=== PATIENT | female | born 1990 | race American Indian/Alaskan Native ===

== ENCOUNTER 2017-03-08 22:54 | Emergency (ER) | payer MEDICAID, OTHER ==
--- NOTE | 2017-03-08 23:06 | EDM.PDOC ---
{null, ED HPI GENERAL MEDICAL PROBLEM - General Stated Complaint: BY AMBULANCE Time Seen by Provider: 03/08/17 23:05 Source of Information: Reports: Patient, EMS History Limitations: Reports: No Limitations - History of Present Illness INITIAL COMMENTS - FREE TEXT/NARRATIVE: EMS states Pt allege fell and injured ankle, Pt intox but ambulated to ambulance with friend. PATIENT NOT IN ROOM WHEN WENT TO EXAMINE. - Related Data Allergies Allergy/AdvReac Type Severity Reaction Status Date / Time hydromorphone HCl Allergy Mild Hives Verified 04/20/16 18:20 [From Dilaudid] vancomycin Allergy Mild Rash Verified 07/01/16 17:18 Home Meds: Home Meds Acetaminophen [Tylenol] 650 mg PO Q4H PRN #0 tablet 07/03/16 [Rx] Bacitracin/Neomycin/Polymyxin [Triple Antibiotic Oint] 1 gm TOP BID tube [Rx] Clindamycin Hcl [IJD: Clindamycin HCl] 300 mg PO .EVERY 6 HOURS #42 cap [Rx] Sertraline [Zoloft] 25 mg PO BEDTIME #30 tablet 07/03/16 [Rx] Past Medical History HEENT History: Reports: None Cardiovascular History: Reports: None Respiratory History: Reports: None Gastrointestinal History: Reports: None Genitourinary History: Reports: None 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 Musculoskeletal History: Reports: None Neurological History: Reports: None Psychiatric History: Reports: None Endocrine/Metabolic History: Reports: None Hematologic History: Reports: None Immunologic History: Reports: None Oncologic (Cancer) History: Reports: None Dermatologic History: Reports: None - Infectious Disease History Infectious Disease History: Reports: None - Past Surgical History Head Surgeries/Procedures: Reports: None Social & Family History - Family History Family Medical History: Noncontributory Respiratory: Reports: Asthma (mother) Endocrine/Metabolic: Reports: Diabetes, type II (grandmother) - Tobacco Use Smoking Status *Q: Never Smoker Second Hand Smoke Exposure: No - Alcohol Use Days Per Week of Alcohol Use: 0 - Recreational Drug Use Recreational Drug Use: No Drug Use in Last 12 Months: Yes Recreational Drug Type: Reports: Marijuana/Hashish Recreational Drug Use Frequency: Rarely Recreational Drug Last Use: 09-04-14 - Living Situation & Occupation Living situation: Reports: with Family Review of Systems - Review of Systems Review Of Systems: ROS reveals no pertinent complaints other than HPI. Trauma Exam - Physical Exam Exam: Not Obtained Text/Narrative:: pt not in room. Course - Orders/Labs/Meds Labs: Laboratory Tests 03/08/17 03/08/17 03/08/17 Range/Units 23:02 23:02 23:02 Urine Color Yellow (YELLOW) Urine Appearance Clear (CLEAR) Urine pH 5.5 (5.0-9.0) Ur Specific [place] <= 1.005 (1.005-1.030) Urine Protein 30 H (NEGATIVE) Urine Glucose (UA) Negative (NEGATIVE) Urine Ketones Negative (NEGATIVE) Urine Occult Blood Negative (NEGATIVE) Urine Nitrite Negative (NEGATIVE) Urine Bilirubin Negative (NEGATIVE) Urine Urobilinogen 0.2 (0.2-1.0) mg/dL Ur Leukocyte Esterase Trace H (NEGATIVE) Urine HCG, Qual Negative Urine Opiates Screen Negative (NEGATIVE) Ur Oxycodone Screen Negative (NEGATIVE) Urine Methadone Screen Negative (NEGATIVE) Ur Barbiturates Screen Negative (NEGATIVE) U Tricyclic Antidepress Negative (NEGATIVE) Ur Phencyclidine Scrn Negative (NEGATIVE) Ur Amphetamine Screen Negative (NEGATIVE) U Methamphetamines Scrn Negative (NEGATIVE) Urine MDMA Screen Negative (NEGATIVE) U Benzodiazepines Scrn Negative (NEGATIVE) Urine Cocaine Screen Negative (NEGATIVE) U Marijuana (THC) Screen Negative (NEGATIVE) Departure - Departure Time of Disposition: 00:46 Disposition: Eloped 07 Condition: fair Clinical Impression: Patient left without being seen Left ankle injury Qualifiers: Encounter type: initial encounter Qualified Code(s): S99.912A - Unspecified injury of left ankle, initial encounter - Discharge Information }
== END 2017-03-08 23:42 | disposition left against medical advice (07) ==
LOC: DL.ED 22:54
DX: Z53.21 Procedure and treatment not carried out due to patient leaving prior to being seen by health care provider (principal)
CPT/HCPCS: 80305; 81003; 81025

== ENCOUNTER 2018-06-07 08:42 | Day surgery (SDC) | payer MEDICAID, OTHER ==
[2018-06-07] MEDS ORDERED: Diphtheria,Pertussis(Acell),Tetanus Vaccine 0.5 ML SDV IM ONE (09:49)
[2018-06-07] MEDS ORDERED: ceFAZolin 1 GM Vial IVPUSH ONE ×2 (09:50→10:39)
[2018-06-07] MEDS ORDERED: Lactated Ringers 1,000 ML IV SCH (10:00)
[2018-06-07 10:02] LABS: CHLORIDE,CL 108 mmol/L (101-111); SODIUM,NA 141 mmol/L (135-145)
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
[2018-06-07] MEDS ORDERED: Propofol 200 MG/20 ML SDV IV ONE (12:01)
[2018-06-07] MEDS ORDERED: fentaNYL 100 MCG/2 ML SDV IV ONE (12:01)
[2018-06-07] MEDS ORDERED: Midazolam 1 MG/ML 2 ML SDV IV ONE (12:01)
[2018-06-07] MEDS ORDERED: Dexamethasone 4 MG/ML SDV IV ONE (12:01)
[2018-06-07] MEDS ORDERED: diphenhydrAMINE 50 MG/ML SDV IV ONE (12:01)
[2018-06-07] MEDS ORDERED: Lactated Ringers 1,000 ML IV ONE (12:01)
[2018-06-07] MEDS ORDERED: Ondansetron 4 MG/2 ML SDV IV ONE (12:01)
[2018-06-07] MEDS ORDERED: Glycopyrrolate 0.2 MG/ML 2 ML SDV IV ONE (12:01)
[2018-06-07] MEDS ORDERED: Lidocaine 1% 30 ML SDV ONE (12:07)
[2018-06-07] MEDS ORDERED: Lidocaine 1% 30 ML SDV INJECT ONE (13:15)
[2018-06-07 15:34] VITALS: BP 137/91
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
== END 2018-06-07 15:15 | disposition home or self-care (01) ==
LOC: DL.SDS 08:42
PROVIDERS: ATTEND Surgery
DX: S51.812A Laceration without foreign body of left forearm, initial encounter (principal); Z79.2 Long term (current) use of antibiotics; Z88.8 Allergy status to other drugs, medicaments and biological substances; X58.XXXA Exposure to other specified factors, initial encounter
CPT/HCPCS: 13121; 13122; 36415; 80053; 84703; 85025; 90471; 90715; 96374; 99283; G0480; J0690; J1100; J1200; J2250; J2405; J2704; J3010; J3490; J7120

== ENCOUNTER 2019-09-01 10:02 | Emergency (ER) | payer MEDICAID, OTHER ==
[2019-09-01 10:22] VITALS: BP 154/91; PULSE 93
--- NOTE | 2019-09-01 10:38 | EDM.PDOC ---
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 Pt reports Hx of irregular menses. She is unsure of her LMP but she believes it was some time last May 2019. Pt reports Hx of being G1, P0 with sAb1. Pt reports that last Sunday she got her period, which was fairly normal at first. However, today it became heavy and she began to have intermittent "waves" of pain and cramping in the pelvis. She admits to having unprotected sex. At 0400HRS this morning she states she passed something in the toilet, either a large clot or tissue. She took Ibupofen 200 mg at 0800HRS this morning for the pain and cramping. Currently she rates the pelvic pain 5/10. Pt states she is soaking a pads every 20 minutes for the last 2 hours, but now that she is in the ER the bleeding has lessened. Onset: Gradual Onset Date: 08/25/19 Duration: Constant, Getting Worse Location: Reports: Pelvis Quality: Reports: Ache, Other (Cramping) Severity: Moderate Improves with: Reports: None Worsens with: Reports: None Associated Symptoms: Reports: No Other Symptoms Treatments DIGITIZER: Reports: NSAIDS Lower Abdominal Pain Score (Numeric/FACES): 4 - Related Data Allergies Allergy/AdvReac Type Severity Reaction Status Date / Time hydromorphone HCl Allergy Mild Hives Verified 09/01/19 10:23 [From Dilaudid] vancomycin Allergy Mild Rash Verified 09/01/19 10:23 transpore tape Allergy Facial Uncoded 09/01/19 10:23 Swelling Home Meds: Home Meds Ibuprofen 200 mg PO ASDIRECTED PRN 09/01/19 [History] Past Medical History HEENT History: Reports: None Cardiovascular History: Reports: None Respiratory History: Reports: None Gastrointestinal History: Reports: None Genitourinary History: Reports: None 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 Para: 0 LMP (Approximate): Menstruating Musculoskeletal History: Reports: None Neurological History: Reports: None Psychiatric History: Reports: Addiction Endocrine/Metabolic History: Reports: None Hematologic History: Reports: None Immunologic History: Reports: None Oncologic (Cancer) History: Reports: None Dermatologic History: Reports: None - Infectious Disease History Infectious Disease History: Reports: None - Past Surgical History Head Surgeries/Procedures: Reports: None Social & Family History - Family History Family Medical History: Noncontributory Respiratory: Reports: Asthma Endocrine/Metabolic: Reports: Diabetes, type II - Tobacco Use Smoking Status *Q: Never Smoker Second Hand Smoke Exposure: No - Caffeine Use Caffeine Use: Reports: Energy Drinks, Soda - Recreational Drug Use Recreational Drug Use: Yes Drug Use in Last 12 Months: No Recreational Drug Type: Reports: Marijuana/Hashish, Methamphetamine, Oxycodone Recreational Drug Use Frequency: Not Used In Over 3 Months - Living Situation & Occupation Living situation: Reports: with Family ED ROS GENERAL - Review of Systems Review Of Systems: ROS reveals no pertinent complaints other than HPI. ED EXAM, RENAL/ - Physical Exam Exam: See Below Exam Limited By: No Limitations General Appearance: Alert, WD/WN, No Apparent Distress, Obese Head: Atraumatic, Normocephalic Neck: Normal Inspection Respiratory/Chest: No Respiratory Distress, Lungs Clear, Normal Breath Sounds, No Accessory Muscle Use, Chest Non-Tender Cardiovascular: Regular Rate, Rhythm, No Edema GI/Abdominal: Normal Bowel Sounds, Soft, No Distention, Tender (Mild suprapuic tenderness). No: Guarding, Rigid, Rebound (Female) Exam: Deferred Rectal (Female) Exam: Deferred Back Exam: Normal Inspection Extremities: Normal Inspection Neurological: Alert, Oriented, Normal Cognition, Normal Gait, No Motor/Sensory Deficits Psychiatric: Tearful Skin Exam: Warm, Dry, Intact, Normal Color, No Rash Course - Vital Signs Last Recorded V/S: Last Vital Signs Temp 96.6 F 09/01/19 10:16 Pulse 93 09/01/19 10:16 Resp 16 09/01/19 10:16 BP 154/91 H 09/01/19 10:16 Pulse Ox 100 09/01/19 10:16 - Orders/Labs/Meds Orders: Active Orders 24 hr Category Date Time Status OB Ltd 1 or More Fetus [US] Stat Exams 09/01/19 11:09 Ordered OB Transvaginal [US] Stat Exams 09/01/19 11:01 Ordered CHLAMYDIA AND GONORRHEA BY TMA Routine Lab 09/01/19 10:34 Received CULTURE URINE [RM] Stat Lab 09/01/19 10:34 Received Labs: Laboratory Tests 09/01/19 09/01/19 09/01/19 Range/Units 10:34 10:34 10:43 WBC 10.1 H (5.0-10.0) 10^3/uL RBC 4.52 (4.2-5.4) 10^6/uL Hgb 13.5 (12.0-16.0) g/dL Hct 40.4 (37.0-47.0) % MCV 89.4 (80-100) fL MCH 29.9 (27.0-34.0) pg MCHC 33.4 (33.0-35.0) g/dL Plt Count 272 D (150-450) 10^3/uL Neut % (Auto) 80.4 H (42.2-75.2) % Lymph % (Auto) 13.8 L (20.5-50.1) % [place] % (Auto) 4.1 (2-8) % Eos % (Auto) 1.4 (1.0-3.0) % Baso % (Auto) 0.3 (0.0-1.0) % Sodium (135-145) mmol/L Potassium (3.6-5.0) mmol/L Chloride (101-111) mmol/L Carbon Dioxide (21.0-31.0) mmol/L Anion Gap BUN (7-18) mg/dL Creatinine (0.6-1.3) mg/dL Est Cr Clr Drug Dosing mL/min Estimated GFR (MDRD) BUN/Creatinine Ratio Glucose (74-105) mg/dL Calcium (8.4-10.2) mg/dl Total Bilirubin (0.2-1.0) mg/dL AST (10-42) IU/L ALT (10-60) IU/L Alkaline Phosphatase (42-121) IU/L Total Protein (6.7-8.2) g/dl Albumin (3.2-5.5) g/dl Globulin Albumin/Globulin Ratio HCG, Quant (0-25) mIU/ml Beta HCG, Quant mIU/ml Urine Color Red (YELLOW) Urine Appearance Cloudy (CLEAR) Urine pH 7.5 (5.0-9.0) Ur Specific [place] 1.020 (1.005-1.030) Urine Protein 100 H (NEGATIVE) Urine Glucose (UA) Negative (NEGATIVE) Urine Ketones Negative (NEGATIVE) Urine Occult Blood Large H (NEGATIVE) Urine Nitrite Negative (NEGATIVE) Urine Bilirubin Negative (NEGATIVE) Urine Urobilinogen 0.2 (0.2-1.0) mg/dL Ur Leukocyte Esterase Small H (NEGATIVE) Urine RBC Packed H /HPF Urine WBC 0-5 (0-5/HPF) /HPF Ur Epithelial Cells Few (NOT SEEN) /HPF Urine Bacteria Not seen (0-FEW/HPF) /HPF Urine Mucus Rare (NOT SEEN) /LPF Urine HCG, Qual Positive Blood Type 09/01/19 09/01/19 09/01/19 Range/Units 10:43 10:43 10:43 WBC (5.0-10.0) 10^3/uL RBC (4.2-5.4) 10^6/uL Hgb (12.0-16.0) g/dL Hct (37.0-47.0) % MCV (80-100) fL MCH (27.0-34.0) pg MCHC (33.0-35.0) g/dL Plt Count (150-450) 10^3/uL Neut % (Auto) (42.2-75.2) % Lymph % (Auto) (20.5-50.1) % [place] % (Auto) (2-8) % Eos % (Auto) (1.0-3.0) % Baso % (Auto) (0.0-1.0) % Sodium 137 (135-145) mmol/L Potassium 3.9 (3.6-5.0) mmol/L Chloride 103 (101-111) mmol/L Carbon Dioxide 23.0 (21.0-31.0) mmol/L Anion Gap 14.9 BUN 7 (7-18) mg/dL Creatinine 0.7 (0.6-1.3) mg/dL Est Cr Clr Drug Dosing 108.63 mL/min Estimated GFR (MDRD) > 60 BUN/Creatinine Ratio 10.00 Glucose 94 (74-105) mg/dL Calcium 8.8 (8.4-10.2) mg/dl Total Bilirubin 0.7 (0.2-1.0) mg/dL AST 25 (10-42) IU/L ALT 20 (10-60) IU/L Alkaline Phosphatase 79 (42-121) IU/L Total Protein 7.4 (6.7-8.2) g/dl Albumin 3.8 (3.2-5.5) g/dl Globulin 3.6 Albumin/Globulin Ratio 1.06 HCG, Quant > 1359 H (0-25) mIU/ml Beta HCG, Quant 8835 mIU/ml Urine Color (YELLOW) Urine Appearance (CLEAR) Urine pH (5.0-9.0) Ur Specific [place] (1.005-1.030) Urine Protein (NEGATIVE) Urine Glucose (UA) (NEGATIVE) Urine Ketones (NEGATIVE) Urine Occult Blood (NEGATIVE) Urine Nitrite (NEGATIVE) Urine Bilirubin (NEGATIVE) Urine Urobilinogen (0.2-1.0) mg/dL Ur Leukocyte Esterase (NEGATIVE) Urine RBC /HPF Urine WBC (0-5/HPF) /HPF Ur Epithelial Cells (NOT SEEN) /HPF Urine Bacteria (0-FEW/HPF) /HPF Urine Mucus (NOT SEEN) /LPF Urine HCG, Qual Blood Type O POSITIVE - Radiology Interpretation Free Text/Narrative:: OB US: empty uterus, no acute findings per Tech report, see Radiologist complete report. Departure - Departure Time of Disposition: 11:56 Disposition: Home, Self-Care 01 Condition: Good Clinical Impression: Complete - Discharge Information *PRESCRIPTION DRUG MONITORING PROGRAM REVIEWED*: No *COPY OF PRESCRIPTION DRUG MONITORING REPORT IN PATIENT RADHA: No Instructions: Miscarriage, [id number] Forms: ED Department Discharge Additional Instructions: Follow up in clinic this week or next week for recheck. Return to the ER if you develop a fever, lightheadedness or fainting, or have heavy vaginal bleeding (completely soaking one or more large pads per hour for 2 or more hours). - My Orders Last 24 Hours: My Active Orders 09/01/19 10:34 CHLAMYDIA AND GONORRHEA BY TMA Routine CULTURE URINE [] Stat 09/01/19 11:01 OB Transvaginal [US] Stat 09/01/19 11:09 OB Ltd 1 or More Fetus [US] Stat - Assessment/Plan Last 24 Hours: My Active Orders 09/01/19 10:34 CHLAMYDIA AND GONORRHEA BY TMA Routine CULTURE URINE [RM] Stat 09/01/19 11:01 OB Transvaginal [US] Stat 09/01/19 11:09 OB Ltd 1 or More Fetus [US] Stat
[2019-09-01 11:08] LABS: ANION GAP 14.9; CHLORIDE,CL 103 mmol/L (101-111); SODIUM,NA 137 mmol/L (135-145)
--- NOTE | 2019-09-01 12:20 | US ---
EXAMINATION: OB Transvaginal SEX: Female AGE: 29 years CLINICAL HISTORY: 29-year-old female emergency department with pelvic pain/vag bleed, irreg menses, LMP 22 May. INTERPRETATION: 1. Midline uterus normal size and anatomic configuration with 9.9 mm central endometrial "stripe". 2. No sign of endometrial polypoid, fluid in the endometrial canal, or gestational sac i.e. no IUP. 3. Uterus measures 10.7 cm L x 6.8 cm W by a 5.0 cm AP diameter. No myometrial fibroid mass lesion. Tiny nabothian cyst. 4. Symmetric normal-appearing ovaries. Right ovary measures 3.0 x 2.8 x 2.0 cm. Left ovary measures 2.9 x 2.0 x 1.8 cm. 5. No extraovarian adnexal mass lesion. 6. No free fluid in the cul-de-sac. CONCLUSION: Negative pelvic sonogram. No current sonogram evidence of IUP.
== END 2019-09-01 12:02 | disposition home or self-care (01) ==
LOC: DL.ED 10:02
DX: O03.9 Complete or unspecified spontaneous abortion without complication (principal); Z88.5 Allergy status to narcotic agent; Z88.1 Allergy status to other antibiotic agents; Z91.048 Other nonmedicinal substance allergy status
CPT/HCPCS: 36415; 76815; 76817; 80053; 81001; 81025; 84702; 85025; 86900; 86901; 87086; 87088; 87186; 87491; 87591; 99284; 99284-25

== ENCOUNTER 2023-04-24 13:11 | Emergency (ER) | payer OTHER ==
[2023-04-24 13:26] VITALS: BP 144/95; PULSE 98
[2023-04-24] MEDS ORDERED: Ondansetron 4 MG/2 ML SDV IV ONE (13:26)
[2023-04-24] MEDS ORDERED: Sodium Chloride 0.9% 1,000 ML IV ONE (13:26)
[2023-04-24] MEDS ORDERED: Ketorolac 30 MG/ML SDV IVPUSH ONE (13:27)
[2023-04-24] MEDS ORDERED: Sodium Chloride 0.9% 10 ML Syringe FLUSH PRN (13:27)
[2023-04-24 13:41] LABS: BASOPHILS PERCENT AUTO 0.5 % (0.0-1.0); EOSINOPHILS PERCENT AUTO 3.3 % (1.0-3.0); HEMATOCRIT 41.7 % (37.0-47.0); HEMOGLOBIN 13.5 g/dL (12.0-16.0); LYMPHOCYTES PERCENT AUTO 31.3 % (20.5-50.1); MEAN CORPUSCULAR HEMOGLOBIN 29.5 pg (27.0-34.0); MEAN CORPUSCULAR HGB CONC 32.4 g/dL (33.0-35.0); MONOCYTES PERCENT AUTO 6.3 % (2-8); NEUTROPHILS PERCENT AUTO 58.6 % (42.2-75.2); PLATELET COUNT,PLT 137 10^3/uL (150-450); RED BLOOD CELL COUNT 4.58 10^6/uL (4.2-5.4)
[2023-04-24 14:00] LABS: ALANINE AMINOTRANSFERASE,ALT 59 U/L (14-59); ALKALINE PHOSPHATASE 255 U/L (46-116); ANION GAP 11.8 mEq/L (7-13); ASPARTATE AMNIOTRANSFERASE,AST 172 U/L (15-37); BILIRUBIN TOTAL 1.3 mg/dL (0.2-1.0); BLOOD UREA NITROGEN,BUN 5 mg/dL (7-18); BUN/CREATININE RATIO 6.6 (No establ ref range); CALCIUM 8.3 mg/dL (8.5-10.1); CARBON DIOXIDE,CO2 26 mmol/L (21-32); CHLORIDE,CL 100 mmol/L (98-107); CREATININE 0.76 mg/dL (0.55-1.02); GLUCOSE RANDOM 110 mg/dL (70-99); POTASSIUM,K 3.8 mmol/L (3.5-5.1); PROTEIN TOTAL,TP 8.2 g/dL (6.4-8.2); SODIUM,NA 134 mmol/L (136-145)
[2023-04-24 14:03] LABS: LACTIC ACID 1.1 mmol/L (0.4-2.0)
[2023-04-24 14:04] LABS: A/G RATIO 0.58; ESTIMATED GFR 107 mL/min (>=60)
[2023-04-24 14:15] LABS: AMPHETAMINES,URINE NEGATIVE (NEGATIVE); BARBITURATES,URINE NEGATIVE (NEGATIVE); BENZODIAZEPINE,URINE NEGATIVE (NEGATIVE); MDMA (ECSTASY), URINE NEGATIVE (NEGATIVE); METHADONE,URINE NEGATIVE (NEGATIVE); METHAMPHETAMINES,URINE POSITIVE (NEGATIVE); OPIATES,URINE NEGATIVE (NEGATIVE); OXYCODONE,URINE NEGATIVE (NEGATIVE); PHENCYCLIDINE,URINE NEGATIVE (NEGATIVE); TCA,URINE NEGATIVE (NEGATIVE)
[2023-04-24 14:20] LABS: APPEARANCE,URINE CLEAR (CLEAR); BILIRUBIN,URINE NEGATIVE (NEGATIVE); COLOR,URINE YELLOW (YELLOW); GLUCOSE,URINE NEGATIVE (NEGATIVE); KETONES,URINE NEGATIVE (NEGATIVE); LEUKOCYTE ESTERASE,URINE NEGATIVE (NEGATIVE); NITRITE,URINE NEGATIVE (NEGATIVE); PH,URINE 7.5 (5.0-9.0)
[2023-04-24 14:21] LABS: OCCULT BLOOD,URINE TRACE-INTACT (NEGATIVE); PROTEIN,URINE NEGATIVE (NEGATIVE)
[2023-04-24 14:26] LABS: BACTERIA,URINE FEW /HPF (0-FEW/HPF); EPITHELIAL CELLS,URINE MODERATE /HPF (NOT SEEN); MUCUS,URINE FEW /LPF (NOT SEEN); RBC,URINE 0-5 /HPF (0-5); WBC,URINE 0-5 /HPF (0-5/HPF)
[2023-04-24] MEDS ORDERED: Take Home: Cyclobenzaprine 10 MG Tab, 4 Tab Pack PO ONE (15:12)
== END 2023-04-24 15:33 | disposition home or self-care (01) ==
LOC: DL.ED 13:11
DX: K70.30 Alcoholic cirrhosis of liver without ascites (principal); M54.50 Low back pain, unspecified; Z88.5 Allergy status to narcotic agent; Z88.1 Allergy status to other antibiotic agents; Z91.09 Other allergy status, other than to drugs and biological substances
CPT/HCPCS: 36415; 74176; 80053; 80305-QW; 81001; 81025; 83605; 84145; 85025; 96361; 96374; 96375; 99284; 99284-25; A9270-GY; J1885; J2405; J3490; J7030

== ENCOUNTER 2023-08-24 07:18 | Emergency (ER) | payer MEDICAID, OTHER ==
[2023-08-24] MEDS ORDERED: Albuterol/Ipratropium 3.0-0.5 MG/3 ML Neb Soln NEB ONE (08:02)
[2023-08-24 08:05] VITALS: BP 152/104; PULSE 97
[2023-08-24 08:27] LABS: CORONAVIRUS COVID-19 NAA NEGATIVE (NEGATIVE); INFLUENZA A NAA NEGATIVE (NEGATIVE); INFLUENZA B NAA NEGATIVE (NEGATIVE); RESPIRATORY SYNCYTIAL VIR NAA NEGATIVE (NEGATIVE)
== END 2023-08-24 09:06 | disposition home or self-care (01) ==
LOC: DL.ED 07:18
DX: S82.435A Nondisplaced oblique fracture of shaft of left fibula, initial encounter for closed fracture (principal); J06.9 Acute upper respiratory infection, unspecified; J20.9 Acute bronchitis, unspecified; Z20.822 Contact with and (suspected) exposure to COVID-19; Z88.1 Allergy status to other antibiotic agents; Z88.8 Allergy status to other drugs, medicaments and biological substances; Z91.048 Other nonmedicinal substance allergy status; X50.1XXA Overexertion from prolonged static or awkward postures, initial encounter
CPT/HCPCS: 0241U; 29515; 71045; 73610-LT; 87081; 87430; 99284; J7620-GY

== ENCOUNTER 2023-09-04 13:30 | Emergency (ER) | payer MEDICAID ==
[2023-09-04] MEDS ORDERED: Ibuprofen 800 MG Tab PO ONE (14:27)
[2023-09-04 14:41] LABS: CORONAVIRUS COVID-19 NAA NEGATIVE (NEGATIVE); INFLUENZA A NAA NEGATIVE (NEGATIVE); INFLUENZA B NAA NEGATIVE (NEGATIVE); RESPIRATORY SYNCYTIAL VIR NAA NEGATIVE (NEGATIVE)
== END 2023-09-04 15:18 | disposition home or self-care (01) ==
LOC: DL.ED 13:30
DX: J06.9 Acute upper respiratory infection, unspecified (principal); H66.91 Otitis media, unspecified, right ear; R19.7 Diarrhea, unspecified; Z88.5 Allergy status to narcotic agent; Z88.1 Allergy status to other antibiotic agents; Z91.048 Other nonmedicinal substance allergy status; Z20.822 Contact with and (suspected) exposure to COVID-19
CPT/HCPCS: 0241U; 87081; 87430; 99283; 99284; A9270-GY

== ENCOUNTER 2023-09-23 00:03 | Emergency (ER) | payer MEDICAID ==
[2023-09-23] MEDS ORDERED: Dexamethasone 4 MG/ML SDV IVPUSH ONE (00:16)
[2023-09-23 00:40] LABS: BASOPHILS PERCENT AUTO 0.5 % (0.0-1.0); EOSINOPHILS PERCENT AUTO 1.8 % (1.0-3.0); HEMATOCRIT 35.3 % (37.0-47.0); HEMOGLOBIN 11.9 g/dL (12.0-16.0); LYMPHOCYTES PERCENT AUTO 38.8 % (20.5-50.1); MEAN CORPUSCULAR HEMOGLOBIN 30.8 pg (27.0-34.0); MEAN CORPUSCULAR HGB CONC 33.7 g/dL (33.0-35.0); MEAN CORPUSCULAR VOLUME 91.5 fL (80-100); MONOCYTES PERCENT AUTO 6.1 % (2-8); NEUTROPHILS PERCENT AUTO 52.8 % (42.2-75.2); PLATELET COUNT,PLT 145 10^3/uL (150-450); RED BLOOD CELL COUNT 3.86 10^6/uL (4.2-5.4); WHITE BLOOD CELL COUNT,WBC 8.8 10^3/uL (5.0-10.0)
[2023-09-23 00:53] LABS: ANION GAP 11.3 mEq/L (7-13); BLOOD UREA NITROGEN,BUN 4 mg/dL (7-18); CALCIUM 7.8 mg/dL (8.5-10.1); CARBON DIOXIDE,CO2 28 mmol/L (21-32); CHLORIDE,CL 104 mmol/L (98-107); CREATININE 0.77 mg/dL (0.55-1.02); GLUCOSE RANDOM 128 mg/dL (70-99); POTASSIUM,K 3.3 mmol/L (3.5-5.1); SODIUM,NA 140 mmol/L (136-145)
[2023-09-23 00:54] LABS: ESTIMATED GFR 106 mL/min (>=60)
[2023-09-23 01:16] LABS: CORONAVIRUS COVID-19 NAA NEGATIVE (NEGATIVE); INFLUENZA A NAA NEGATIVE (NEGATIVE); INFLUENZA B NAA NEGATIVE (NEGATIVE); RESPIRATORY SYNCYTIAL VIR NAA NEGATIVE (NEGATIVE)
[2023-09-23] MEDS ORDERED: Iopamidol 612 MG/ML 100 ML Bottle IVPUSH ONE (01:19)
[2023-09-23] MEDS ORDERED: Potassium Chloride 10 MEQ Tab.ER PO ONE (01:28)
[2023-09-23] MEDS ORDERED: Iopamidol 755 Mg/ML 100 ML Bottle IVPUSH ONE (01:57)
[2023-09-23 02:54] VITALS: BP 132/84; PULSE 109
[2023-09-23] MEDS ORDERED: Take Home: Doxycycline 100 MG Cap, 4 Cap Pack PO ONE ×2 (03:02→03:05)
[2023-09-23] MEDS ORDERED: Take Home: predniSONE 20 MG, 4 Tab Pack PO ONE (03:03)
== END 2023-09-23 03:23 | disposition home or self-care (01) ==
LOC: DL.ED 00:03
DX: J01.20 Acute ethmoidal sinusitis, unspecified (principal); Z20.822 Contact with and (suspected) exposure to COVID-19; Z88.1 Allergy status to other antibiotic agents; Z88.5 Allergy status to narcotic agent; Z91.048 Other nonmedicinal substance allergy status
CPT/HCPCS: 0241U; 36415; 70491; 71046; 71275; 80048; 85025; 85379; 87081; 87430; 96374; 99283; 99284-25; A9270-GY; J1100; Q9967

== ENCOUNTER 2023-10-01 10:56 | Inpatient (IN) | payer MEDICAID ==
[2023-10-01] MEDS ORDERED: Sodium Chloride 0.9% 10 ML Syringe FLUSH PRN (11:20)
[2023-10-01] MEDS ORDERED: Ondansetron 4 MG/2 ML SDV IV ONE (11:21)
[2023-10-01] MEDS ORDERED: Sodium Chloride 0.9% 1,000 ML IV ONE (11:21)
[2023-10-01] MEDS ORDERED: Thiamine 100 MG in Sodium Chloride 0.9% 100 ML IV ONE (11:21)
[2023-10-01 11:42] LABS: HEMATOCRIT 34.1 % (37.0-47.0); HEMOGLOBIN 11.1 g/dL (12.0-16.0); MEAN CORPUSCULAR HEMOGLOBIN 30.7 pg (27.0-34.0); MEAN CORPUSCULAR HGB CONC 32.6 g/dL (33.0-35.0); MEAN CORPUSCULAR VOLUME 94.5 fL (80-100); PLATELET COUNT,PLT 90 10^3/uL (150-450); RED BLOOD CELL COUNT 3.61 10^6/uL (4.2-5.4); WHITE BLOOD CELL COUNT,WBC 5.4 10^3/uL (5.0-10.0)
[2023-10-01 11:51] LABS: BASOPHILS PERCENT AUTO 1.5 % (0.0-1.0); EOSINOPHILS PERCENT AUTO 1.5 % (1.0-3.0); LYMPHOCYTES PERCENT AUTO 21.5 % (20.5-50.1); MONOCYTES PERCENT AUTO 8.3 % (2-8); NEUTROPHILS PERCENT AUTO 67.2 % (42.2-75.2)
[2023-10-01 11:59] LABS: INR 1.3 (0.9-1.2); PROTHROMBIN TIME 12.9 SEC (9.0-12.0); PTT,PARTIAL THROMBOPLSTIN TIME 30.7 SEC (22.0-34.0)
[2023-10-01 12:00] LABS: ALANINE AMINOTRANSFERASE,ALT 52 U/L (14-59); ALBUMIN 2.4 g/dL (3.4-5.0); ALKALINE PHOSPHATASE 277 U/L (46-116); AMYLASE 32 U/L (25-115); ANION GAP 9.5 mEq/L (7-13); ASPARTATE AMNIOTRANSFERASE,AST 176 U/L (15-37); BILIRUBIN TOTAL 2.3 mg/dL (0.2-1.0); BLOOD UREA NITROGEN,BUN 8 mg/dL (7-18); BUN/CREATININE RATIO 11.4 (No establ ref range); CALCIUM 7.4 mg/dL (8.5-10.1); CARBON DIOXIDE,CO2 29 mmol/L (21-32); CHLORIDE,CL 105 mmol/L (98-107); EST CRCL DRUG DOSING (CG) 104.78 mL/min; GLUCOSE RANDOM 108 mg/dL (70-99); LIPASE 54 U/L (16-77); MAGNESIUM 1.5 mg/dL (1.8-2.4); POTASSIUM,K 3.5 mmol/L (3.5-5.1); PROTEIN TOTAL,TP 7.6 g/dL (6.4-8.2); SODIUM,NA 140 mmol/L (136-145)
[2023-10-01 12:01] LABS: A/G RATIO 0.46; ESTIMATED GFR 119 mL/min (>=60)
[2023-10-01 12:03] LABS: LACTIC ACID 1.4 mmol/L (0.4-2.0)
[2023-10-01] MEDS ORDERED: Magnesium Sulfate/Water 2 GM in Premix Bag 1 BAG IV ONE ×2 (12:04→15:11)
[2023-10-01 12:14] LABS: EOSINOPHILS PERCENT MAN 1 % (1-3); LYMPHOCYTES PERCENT MAN 23 % (20-50); MONOCYTES PERCENT MAN 4 % (2-8); SEG NEUTROPHILS PERCENT MAN 71 % (42-75)
[2023-10-01] MEDS ORDERED: Iopamidol 612 MG/ML 100 ML Bottle IVPUSH ONE (12:19)
[2023-10-01] MEDS ORDERED: Magnesium Sulfate/Water 50 ML ONE (12:45)
[2023-10-01] MEDS ORDERED: LORazepam 2 MG/ML SDV IVPUSH ONE (13:50)
[2023-10-01] MEDS ORDERED: Haloperidol Lactate 5 MG/ML SDV IM PRN (14:41)
[2023-10-01] MEDS ORDERED: LORazepam 0.5 MG Tab PO PRN (14:41)
[2023-10-01] MEDS ORDERED: LORazepam 2 MG/ML SDV IV PRN (14:41)
[2023-10-01] MEDS ORDERED: Ondansetron 4 MG/2 ML SDV IVPUSH PRN ×2 (14:41→14:49)
[2023-10-01] MEDS ORDERED: cloNIDine 0.1 MG Tab PO PRN (14:41)
[2023-10-01] MEDS ORDERED: MVI, Adult with Vitamin K 10 ML, Folic Acid 1 MG, Thiamine 100 MG in Lactated Ringers 1... IV ONE ×4 (14:41)
[2023-10-01] MEDS ORDERED: Polyethylene Glycol 3350 Powder 17 GM Packet PO PRN (14:49)
[2023-10-01] MEDS ORDERED: Albuterol/Ipratropium 3.0-0.5 MG/3 ML Neb Soln NEB PRN (14:49)
[2023-10-01] MEDS ORDERED: Magnesium Hydroxide 400 MG/5 ML Susp 30 ML Cup PO PRN (14:49)
[2023-10-01] MEDS ORDERED: Sennosides/Docusate Sodium 50-8.6 MG Tab PO PRN (14:49)
[2023-10-01] MEDS ORDERED: traMADol 50 MG Tab PO PRN (14:59)
[2023-10-01] MEDS ORDERED: oxyCODONE 5 MG Tab PO PRN (15:00)
[2023-10-01] MEDS ORDERED: Naloxone 2 MG/2 ML Syringe IVPUSH PRN (15:01)
[2023-10-01] MEDS ORDERED: fentaNYL 100 MCG/2 ML SDV IVPUSH PRN (15:01)
[2023-10-01] MEDS ORDERED: Pantoprazole 40 MG Vial IVPUSH ONE (15:04)
[2023-10-01] MEDS ORDERED: hydrALAZINE 20 MG/ML SDV IVPUSH PRN (15:06)
[2023-10-01] MEDS ORDERED: Metoprolol Tartrate 5 MG/5 ML SDV IVPUSH PRN (15:06)
[2023-10-01] MEDS ORDERED: LORazepam 2 MG/ML SDV IVPUSH PRN (15:07)
[2023-10-01] MEDS ORDERED: Propranolol 20 MG Tab PO ONE (15:13)
[2023-10-01] MEDS ORDERED: Nicotine 21 MG/24 Hr Patch TRDERM PRN (15:18)
[2023-10-01] MEDS: Sucralfate Suspension 1 GM/10 ML Cup PO SCH ×2 (16:37→21:49)
[2023-10-01 16:59] LABS: HEMOGLOBIN A1C 5.4 % (<5.7)
[2023-10-01 17:07] LABS: T4 FREE 1.23 ng/dL (0.76-1.46); TSH ULTRASENSITIVE 1.72 uIU/mL (0.36-3.74)
[2023-10-01 17:08] LABS: PERCENT FE SATURATION 22.7 % (20.0-50.0)
[2023-10-01] MEDS: Pantoprazole 40 MG Vial IVPUSH SCH (17:12)
[2023-10-01 18:17] LABS: HEMATOCRIT 33.5 % (37.0-47.0); HEMOGLOBIN 10.7 g/dL (12.0-16.0)
[2023-10-01] MEDS ORDERED: [UNRECOGNIZED DRUG - OTHER] TRDERM SCH (21:00)
[2023-10-01] MEDS: Propranolol 20 MG Tab PO SCH (21:49)
[2023-10-02 00:19] LABS: HEMATOCRIT 35.2 % (37.0-47.0); HEMOGLOBIN 11.3 g/dL (12.0-16.0)
[2023-10-02 00:24] LABS: AMPHETAMINES,URINE NEGATIVE (NEGATIVE); APPEARANCE,URINE CLEAR (CLEAR); BARBITURATES,URINE NEGATIVE (NEGATIVE); BENZODIAZEPINE,URINE POSITIVE (NEGATIVE); BILIRUBIN,URINE NEGATIVE (NEGATIVE); COLOR,URINE DARK YELLOW (YELLOW); GLUCOSE,URINE NEGATIVE (NEGATIVE); KETONES,URINE NEGATIVE (NEGATIVE); LEUKOCYTE ESTERASE,URINE NEGATIVE (NEGATIVE); MDMA (ECSTASY), URINE NEGATIVE (NEGATIVE); METHADONE,URINE NEGATIVE (NEGATIVE); METHAMPHETAMINES,URINE NEGATIVE (NEGATIVE); NITRITE,URINE NEGATIVE (NEGATIVE); OCCULT BLOOD,URINE MODERATE (NEGATIVE); OPIATES,URINE NEGATIVE (NEGATIVE); OXYCODONE,URINE NEGATIVE (NEGATIVE); PHENCYCLIDINE,URINE NEGATIVE (NEGATIVE); PROTEIN,URINE NEGATIVE (NEGATIVE); TCA,URINE NEGATIVE (NEGATIVE); UROBILINOGEN,URINE 0.2 mg/dL (0.2-1.0)
[2023-10-02 00:32] LABS: EPITHELIAL CELLS,URINE FEW /HPF (NOT SEEN); RBC,URINE 40-50 /HPF (0-5); WBC,URINE 0-5 /HPF (0-5/HPF)
[2023-10-02 00:33] LABS: BACTERIA,URINE RARE /HPF (0-FEW/HPF)
[2023-10-02] MEDS ORDERED: Pantoprazole 40 MG Tab.CR PO SCH (06:00)
[2023-10-02] MEDS: Sucralfate Suspension 1 GM/10 ML Cup PO SCH ×4 (06:03→20:00)
[2023-10-02] MEDS: Pantoprazole 40 MG Vial IVPUSH SCH ×2 (06:03→17:09)
[2023-10-02 06:06] LABS: EOSINOPHILS PERCENT AUTO 2.7 % (1.0-3.0); HEMATOCRIT 35.2 % (37.0-47.0); HEMOGLOBIN 11.4 g/dL (12.0-16.0); LYMPHOCYTES PERCENT AUTO 31.2 % (20.5-50.1); MEAN CORPUSCULAR HEMOGLOBIN 30.6 pg (27.0-34.0); MEAN CORPUSCULAR HGB CONC 32.4 g/dL (33.0-35.0); MEAN CORPUSCULAR VOLUME 94.6 fL (80-100); MONOCYTES PERCENT AUTO 9.2 % (2-8); NEUTROPHILS PERCENT AUTO 55.9 % (42.2-75.2); PLATELET COUNT,PLT 80 10^3/uL (150-450); RED BLOOD CELL COUNT 3.72 10^6/uL (4.2-5.4); WHITE BLOOD CELL COUNT,WBC 4.9 10^3/uL (5.0-10.0)
[2023-10-02 06:15] LABS: INR 1.3 (0.9-1.2); PROTHROMBIN TIME 12.8 SEC (9.0-12.0)
[2023-10-02 06:21] LABS: ALBUMIN 2.1 g/dL (3.4-5.0); ANION GAP 8.8 mEq/L (7-13); BUN/CREATININE RATIO 11.8 (No establ ref range); CALCIUM 7.5 mg/dL (8.5-10.1); CREATININE 0.68 mg/dL (0.55-1.02); EST CRCL DRUG DOSING (CG) 107.86 mL/min; MAGNESIUM 2.1 mg/dL (1.8-2.4); POTASSIUM,K 3.8 mmol/L (3.5-5.1); PROTEIN TOTAL,TP 7.4 g/dL (6.4-8.2)
[2023-10-02 06:27] LABS: A/G RATIO 0.4
[2023-10-02] MEDS: Propranolol 20 MG Tab PO SCH ×2 (09:16→20:00)
[2023-10-02] MEDS: Folic Acid 1 MG Tab PO SCH (09:16)
[2023-10-02] MEDS: Multivitamin Tab PO SCH (09:16)
[2023-10-02] MEDS: Phytonadione 5 MG Tab PO SCH (09:16)
[2023-10-02] MEDS ORDERED: Spironolactone 25 MG Tab PO ONE (18:11)
[2023-10-02] MEDS ORDERED: Furosemide 40 MG Tab PO ONE (18:13)
[2023-10-03] MEDS: Sucralfate Suspension 1 GM/10 ML Cup PO SCH ×3 (05:41→10:20)
[2023-10-03] MEDS: Pantoprazole 40 MG Vial IVPUSH SCH (05:41)
[2023-10-03 05:52] LABS: BASOPHILS PERCENT AUTO 0.9 % (0.0-1.0); EOSINOPHILS PERCENT AUTO 2.5 % (1.0-3.0); HEMATOCRIT 36.1 % (37.0-47.0); HEMOGLOBIN 11.7 g/dL (12.0-16.0); LYMPHOCYTES PERCENT AUTO 33.6 % (20.5-50.1); MEAN CORPUSCULAR HEMOGLOBIN 30.6 pg (27.0-34.0); MEAN CORPUSCULAR HGB CONC 32.4 g/dL (33.0-35.0); MEAN CORPUSCULAR VOLUME 94.5 fL (80-100); MONOCYTES PERCENT AUTO 8.3 % (2-8); NEUTROPHILS PERCENT AUTO 54.7 % (42.2-75.2); PLATELET COUNT,PLT 85 10^3/uL (150-450); RED BLOOD CELL COUNT 3.82 10^6/uL (4.2-5.4); WHITE BLOOD CELL COUNT,WBC 5.5 10^3/uL (5.0-10.0)
[2023-10-03 06:08] LABS: A/G RATIO 0.43; ALBUMIN 2.3 g/dL (3.4-5.0); ANION GAP 8.7 mEq/L (7-13); BILIRUBIN TOTAL 2.7 mg/dL (0.2-1.0); BUN/CREATININE RATIO 11.1 (No establ ref range); CALCIUM 8.1 mg/dL (8.5-10.1); CREATININE 0.81 mg/dL (0.55-1.02); EST CRCL DRUG DOSING (CG) 90.55 mL/min; MAGNESIUM 1.7 mg/dL (1.8-2.4); POTASSIUM,K 3.7 mmol/L (3.5-5.1); PROTEIN TOTAL,TP 7.6 g/dL (6.4-8.2)
[2023-10-03] MEDS ORDERED: Magnesium Sulfate/Water 2 GM in Premix Bag 1 BAG IV ONE (08:30)
[2023-10-03 08:37] VITALS: BP 126/85; PULSE 78
[2023-10-03] MEDS: Multivitamin Tab PO SCH (09:06)
[2023-10-03] MEDS: Phytonadione 5 MG Tab PO SCH (09:06)
[2023-10-03] MEDS: Folic Acid 1 MG Tab PO SCH (09:06)
[2023-10-03] MEDS: Spironolactone 25 MG Tab PO SCH ×2 (09:07→09:55)
[2023-10-03] MEDS: Furosemide 40 MG Tab PO SCH ×2 (09:07→09:56)
[2023-10-03] MEDS: Propranolol 20 MG Tab PO SCH (09:07)
== END 2023-10-03 11:28 | disposition home or self-care (01) | DRG 433 ==
LOC: DL.ED 10:56 → UNDOADMIN 13:50 → DL.MS 13:50 → DL.ED 14:15 → UNDOADMIN 19:20 → DL.MS 19:20
PROVIDERS: ADMIT Internal Medicine; ATTEND Internal Medicine
DX: K70.31 Alcoholic cirrhosis of liver with ascites (principal); K76.6 Portal hypertension; K92.2 Gastrointestinal hemorrhage, unspecified; Z68.43 Body mass index [BMI] 50.0-59.9, adult; K52.9 Noninfective gastroenteritis and colitis, unspecified; K63.9 Disease of intestine, unspecified; F10.20 Alcohol dependence, uncomplicated; D50.9 Iron deficiency anemia, unspecified; D69.6 Thrombocytopenia, unspecified; R73.9 Hyperglycemia, unspecified; E83.42 Hypomagnesemia; I10 Essential (primary) hypertension; F17.210 Nicotine dependence, cigarettes, uncomplicated; K29.80 Duodenitis without bleeding; Z88.8 Allergy status to other drugs, medicaments and biological substances; Z91.148 Patient's other noncompliance with medication regimen for other reason; Z79.899 Other long term (current) drug therapy; Z88.1 Allergy status to other antibiotic agents
CPT/HCPCS: 36415; 74177; 80053; 80305-QW; 81001; 82140; 82150; 82272; 82306; 83036; 83540; 83550; 83605; 83690; 83735; 84145; 84439; 84443; 84703; 85014; 85018; 85025; 85610; 85730; 96365; 96367; 96375; 99284; 99285-25; A9270-GY; C9113; J2060; J2405; J3411; J3430; J3475; J3490; J7030; J7120; Q9967

== ENCOUNTER 2023-11-17 15:22 | Emergency (ER) | payer MEDICAID ==
[2023-11-17 15:57] VITALS: BP 141/84; PULSE 69
[2023-11-17] MEDS ORDERED: Sodium Chloride 0.9% 10 ML Syringe FLUSH PRN (16:14)
[2023-11-17] MEDS ORDERED: Sodium Chloride 0.9% 1,000 ML IV SCH (16:15)
[2023-11-17] MEDS ORDERED: Flumazenil 0.1 MG/ML 5 ML MDV IVPUSH PRN (17:00)
[2023-11-17] MEDS ORDERED: LORazepam 2 MG/ML SDV IVPUSH ONE (17:00)
[2023-11-17 17:05] LABS: BASOPHILS PERCENT AUTO 0.6 % (0.0-1.0); EOSINOPHILS PERCENT AUTO 2.6 % (1.0-3.0); HEMATOCRIT 35.4 % (37.0-47.0); HEMOGLOBIN 11.4 g/dL (12.0-16.0); LYMPHOCYTES PERCENT AUTO 43.2 % (20.5-50.1); MEAN CORPUSCULAR HGB CONC 32.2 g/dL (33.0-35.0); MEAN CORPUSCULAR VOLUME 93.2 fL (80-100); MONOCYTES PERCENT AUTO 4.8 % (2-8); NEUTROPHILS PERCENT AUTO 48.8 % (42.2-75.2); PLATELET COUNT,PLT 147 10^3/uL (150-450); WHITE BLOOD CELL COUNT,WBC 6.3 10^3/uL (5.0-10.0)
[2023-11-17 17:28] LABS: A/G RATIO 0.49; ALBUMIN 2.4 g/dL (3.4-5.0); ANION GAP 14.6 mEq/L (7-13); BILIRUBIN TOTAL 1.1 mg/dL (0.2-1.0); BUN/CREATININE RATIO 9.1 (No establ ref range); CALCIUM 7.9 mg/dL (8.5-10.1); CREATININE 0.77 mg/dL (0.55-1.02); EST CRCL DRUG DOSING (CG) 95.26 mL/min; MAGNESIUM 1.6 mg/dL (1.8-2.4); PHOSPHORUS 3.8 mg/dL (2.6-4.7); POTASSIUM,K 3.6 mmol/L (3.5-5.1); PROTEIN TOTAL,TP 7.3 g/dL (6.4-8.2)
[2023-11-17 17:40] LABS: CORONAVIRUS COVID-19 NAA NEGATIVE (NEGATIVE); INFLUENZA A NAA NEGATIVE (NEGATIVE); INFLUENZA B NAA NEGATIVE (NEGATIVE); RESPIRATORY SYNCYTIAL VIR NAA NEGATIVE (NEGATIVE)
== END 2023-11-17 20:22 | disposition home or self-care (01) ==
LOC: DL.ED 15:22
DX: F10.129 Alcohol abuse with intoxication, unspecified (principal); E83.42 Hypomagnesemia; I10 Essential (primary) hypertension; E66.9 Obesity, unspecified; Z88.1 Allergy status to other antibiotic agents; Z88.8 Allergy status to other drugs, medicaments and biological substances; Z91.048 Other nonmedicinal substance allergy status; Z68.42 Body mass index [BMI] 45.0-49.9, adult
CPT/HCPCS: 0241U; 36415; 80053; 80307; 82140; 83735; 84100; 85025; 96361; 96374; 99283; 99284-25; J2060; J3490; J7030

== ENCOUNTER 2024-02-23 16:58 | Emergency (ER) | payer BC, MEDICAID ==
[2024-02-23] MEDS: Ketorolac 30 MG/ML SDV IM ONE (17:10)
== END 2024-02-23 17:44 | disposition home or self-care (01) ==
LOC: DL.ED 16:58
DX: S82.842A Displaced bimalleolar fracture of left lower leg, initial encounter for closed fracture (principal); I10 Essential (primary) hypertension; Z88.5 Allergy status to narcotic agent; Z88.1 Allergy status to other antibiotic agents; Z91.048 Other nonmedicinal substance allergy status; Z79.899 Other long term (current) drug therapy; V18.4XXA Pedal cycle driver injured in noncollision transport accident in traffic accident, initial encounter; Y93.55 Activity, bike riding
CPT/HCPCS: 29515; 73610; 96372; 99283; J1885

== ENCOUNTER 2024-03-04 17:18 | Emergency (ER) | payer BC, OTHER ==
[2024-03-04 17:49] VITALS: BP 124/67; PULSE 97
[2024-03-04 18:10] LABS: BASOPHILS PERCENT AUTO 1.9 % (0.0-1.0); EOSINOPHILS PERCENT AUTO 3.7 % (1.0-3.0); HEMATOCRIT 27.6 % (37.0-47.0); HEMOGLOBIN 8.8 g/dL (12.0-16.0); LYMPHOCYTES PERCENT AUTO 38.5 % (20.5-50.1); MEAN CORPUSCULAR HGB CONC 31.9 g/dL (33.0-35.0); MEAN CORPUSCULAR VOLUME 84.7 fL (80-100); MONOCYTES PERCENT AUTO 5.6 % (2-8); NEUTROPHILS PERCENT AUTO 50.3 % (42.2-75.2); PLATELET COUNT,PLT 192 10^3/uL (150-450); RED BLOOD CELL COUNT 3.26 10^6/uL (4.2-5.4); WHITE BLOOD CELL COUNT,WBC 5.4 10^3/uL (5.0-10.0)
[2024-03-04] MEDS: MVI, Adult with Vitamin K 10 ML, Folic Acid 1 MG, Thiamine 100 MG in Lactated Ringers 1... IV ONE (18:18)
[2024-03-04] MEDS: Ondansetron 4 MG/2 ML SDV IVPUSH ONE (18:19)
[2024-03-04] MEDS: Sodium Chloride 0.9% 10 ML Syringe FLUSH PRN (18:20)
[2024-03-04 18:33] LABS: ANION GAP 14.5 mEq/L (7-13); CALCIUM 7.6 mg/dL (8.5-10.1); CREATININE 0.88 mg/dL (0.55-1.02); EST CRCL DRUG DOSING (CG) 82.59 mL/min; POTASSIUM,K 3.5 mmol/L (3.5-5.1); PROTEIN TOTAL,TP 8.2 g/dL (6.4-8.2)
[2024-03-04 18:34] LABS: AMPHETAMINES,URINE NEGATIVE (NEGATIVE); BARBITURATES,URINE NEGATIVE (NEGATIVE); BENZODIAZEPINE,URINE NEGATIVE (NEGATIVE); MDMA (ECSTASY), URINE NEGATIVE (NEGATIVE); METHADONE,URINE NEGATIVE (NEGATIVE); METHAMPHETAMINES,URINE NEGATIVE (NEGATIVE); OPIATES,URINE NEGATIVE (NEGATIVE); OXYCODONE,URINE NEGATIVE (NEGATIVE); PHENCYCLIDINE,URINE NEGATIVE (NEGATIVE); TCA,URINE NEGATIVE (NEGATIVE)
[2024-03-04 18:35] LABS: A/G RATIO 0.32
[2024-03-04 18:49] LABS: INR 1.4 (0.9-1.2); PROTHROMBIN TIME 14.3 SEC (9.0-12.0)
== END 2024-03-04 19:02 ==
LOC: DL.ED 17:18
DX: Z02.83 Encounter for blood-alcohol and blood-drug test (principal); I10 Essential (primary) hypertension; E66.9 Obesity, unspecified; Z79.899 Other long term (current) drug therapy; Z88.8 Allergy status to other drugs, medicaments and biological substances; Z88.1 Allergy status to other antibiotic agents; Z91.048 Other nonmedicinal substance allergy status; Z68.43 Body mass index [BMI] 50.0-59.9, adult
CPT/HCPCS: 36415; 80053; 80305; 80307; 82272; 84703; 85025; 85610; 85730; 96365; 96375; 99283; J2405; J3411; J7120; J3490

== ENCOUNTER 2024-03-09 07:24 | Inpatient (IN) | payer BC ==
[2024-03-09] MEDS ORDERED: Sodium Chloride 0.9% 10 ML Syringe FLUSH PRN (07:47)
[2024-03-09 07:59] LABS: BASOPHILS PERCENT AUTO 1.2 % (0.0-1.0); EOSINOPHILS PERCENT AUTO 4.7 % (1.0-3.0); HEMOGLOBIN 8.1 g/dL (12.0-16.0); LYMPHOCYTES PERCENT AUTO 38.6 % (20.5-50.1); MEAN CORPUSCULAR HEMOGLOBIN 26.6 pg (27.0-34.0); MEAN CORPUSCULAR HGB CONC 31.2 g/dL (33.0-35.0); MEAN CORPUSCULAR VOLUME 85.2 fL (80-100); MONOCYTES PERCENT AUTO 7.2 % (2-8); NEUTROPHILS PERCENT AUTO 48.3 % (42.2-75.2); PLATELET COUNT,PLT 171 10^3/uL (150-450); RED BLOOD CELL COUNT 3.05 10^6/uL (4.2-5.4); WHITE BLOOD CELL COUNT,WBC 7.5 10^3/uL (5.0-10.0)
[2024-03-09 08:00] LABS: AMPHETAMINES,URINE NEGATIVE (NEGATIVE); APPEARANCE,URINE CLEAR (CLEAR); BARBITURATES,URINE NEGATIVE (NEGATIVE); BENZODIAZEPINE,URINE NEGATIVE (NEGATIVE); BILIRUBIN,URINE NEGATIVE (NEGATIVE); COLOR,URINE YELLOW (YELLOW); GLUCOSE,URINE NEGATIVE (NEGATIVE); KETONES,URINE NEGATIVE (NEGATIVE); LEUKOCYTE ESTERASE,URINE NEGATIVE (NEGATIVE); MDMA (ECSTASY), URINE NEGATIVE (NEGATIVE); METHADONE,URINE NEGATIVE (NEGATIVE); METHAMPHETAMINES,URINE NEGATIVE (NEGATIVE); NITRITE,URINE NEGATIVE (NEGATIVE); OCCULT BLOOD,URINE TRACE-INTACT (NEGATIVE); OPIATES,URINE NEGATIVE (NEGATIVE); OXYCODONE,URINE NEGATIVE (NEGATIVE); PHENCYCLIDINE,URINE NEGATIVE (NEGATIVE); PROTEIN,URINE NEGATIVE (NEGATIVE); TCA,URINE NEGATIVE (NEGATIVE); UROBILINOGEN,URINE 0.2 mg/dL (0.2-1.0)
[2024-03-09 08:14] LABS: INR 1.5 (0.9-1.2)
[2024-03-09] MEDS: Furosemide 40 MG/4 ML VIAL IVPUSH ONE (08:18)
[2024-03-09 08:19] LABS: ALBUMIN 1.8 g/dL (3.4-5.0); ANION GAP 9.4 mEq/L (7-13); BILIRUBIN TOTAL 1.4 mg/dL (0.2-1.0); BUN/CREATININE RATIO 8.1 (No establ ref range); CALCIUM 6.9 mg/dL (8.5-10.1); CREATININE 0.86 mg/dL (0.55-1.02); EST CRCL DRUG DOSING (CG) 84.51 mL/min; MAGNESIUM 1.3 mg/dL (1.8-2.4); POTASSIUM,K 3.4 mmol/L (3.5-5.1); PROTEIN TOTAL,TP 7.5 g/dL (6.4-8.2)
[2024-03-09] MEDS: Sodium Chloride 0.9% 10 ML Syringe FLUSH PRN (08:19)
[2024-03-09 08:20] LABS: A/G RATIO 0.32
[2024-03-09 08:37] LABS: BACTERIA,URINE NOT SEEN /HPF (0-FEW/HPF); EPITHELIAL CELLS,URINE FEW /HPF (NOT SEEN); MUCUS,URINE NOT SEEN /LPF (NOT SEEN); RBC,URINE 0-5 /HPF (0-5); WBC,URINE 0-5 /HPF (0-5/HPF)
[2024-03-09] MEDS ORDERED: Magnesium Sulfate/D5W 1 GM/100 ML BAG IV ONE (08:55)
[2024-03-09] MEDS: Magnesium Sulfate/D5W 1 GM IV ONE (09:33)
[2024-03-09] MEDS ORDERED: Ondansetron 4 MG/2 ML SDV IVPUSH PRN (10:35)
[2024-03-09] MEDS ORDERED: HYDROmorphone 0.5 MG/0.5 ML Syringe IVPUSH PRN (10:35)
[2024-03-09] MEDS ORDERED: Sennosides/Docusate Sodium 50-8.6 MG Tab PO PRN (10:35)
[2024-03-09] MEDS ORDERED: Magnesium Hydroxide 400 MG/5 ML Susp 30 ML Cup PO PRN (10:35)
[2024-03-09] MEDS ORDERED: Ketorolac 30 MG/ML SDV IVPUSH PRN (10:35)
[2024-03-09] MEDS ORDERED: Albuterol/Ipratropium 3.0-0.5 MG/3 ML Neb Soln NEB PRN (10:35)
[2024-03-09] MEDS ORDERED: Naloxone 2 MG/2 ML Syringe IVPUSH PRN (10:35)
[2024-03-09] MEDS ORDERED: Polyethylene Glycol 3350 Powder 17 GM Packet PO PRN (10:35)
[2024-03-09] MEDS ORDERED: Metoprolol Tartrate 5 MG/5 ML SDV IVPUSH PRN (10:42)
[2024-03-09] MEDS ORDERED: hydrALAZINE 20 MG/ML SDV IVPUSH PRN (10:42)
[2024-03-09] MEDS ORDERED: chlordiazePOXIDE 25 MG Cap PO SCH (10:45)
[2024-03-09] MEDS: MVI, Adult with Vitamin K 10 ML, Folic Acid 1 MG, Thiamine 100 MG in Lactated Ringers 1... IV ONE (11:23)
[2024-03-09] MEDS: Thiamine 200 MG/2 ML MDV IV SCH (11:23)
[2024-03-09] MEDS: Albumin Human 25 GM in Premix Bag 1 BAG IV SCH (11:27)
[2024-03-09] MEDS: Furosemide 100 MG in Sodium Chloride 0.9% 90 ML IV SCH (11:41)
[2024-03-09] MEDS: Potassium Chloride 20 MEQ in Premix Bag 1 BAG IV ONE (11:45)
[2024-03-09] MEDS: Thiamine 200 MG/2 ML MDV IM ONE (12:06)
[2024-03-09] MEDS: Magnesium Sulfate/Water 2 GM in Premix Bag 1 BAG IV ONE (14:10)
[2024-03-09] MEDS: Pantoprazole 40 MG Vial IVPUSH SCH (16:23)
[2024-03-09] MEDS: Potassium Chloride 10 MEQ Tab.ER PO ONE (17:01)
[2024-03-09] MEDS: Propranolol 20 MG Tab PO SCH (20:23)
[2024-03-09] MEDS: LORazepam 2 MG/ML SDV IV PRN (20:26)
[2024-03-09] MEDS: Ibuprofen 600 MG Tab PO PRN (23:02)
[2024-03-09] MEDS: Loperamide 2 MG Cap PO PRN (23:02)
[2024-03-09] MEDS: Menthol/Zinc Oxide Ointment 113 GM Tube TOP PRN (23:52)
[2024-03-10] MEDS: Ondansetron 4 MG/2 ML SDV IVPUSH PRN (05:29)
[2024-03-10 06:32] LABS: BASOPHILS PERCENT AUTO 0.5 % (0.0-1.0); EOSINOPHILS PERCENT AUTO 4.2 % (1.0-3.0); HEMATOCRIT 21.3 % (37.0-47.0); LYMPHOCYTES PERCENT AUTO 47.1 % (20.5-50.1); MEAN CORPUSCULAR HEMOGLOBIN 26.9 pg (27.0-34.0); MEAN CORPUSCULAR HGB CONC 31.5 g/dL (33.0-35.0); MEAN CORPUSCULAR VOLUME 85.5 fL (80-100); MONOCYTES PERCENT AUTO 9.7 % (2-8); NEUTROPHILS PERCENT AUTO 38.5 % (42.2-75.2); PLATELET COUNT,PLT 112 10^3/uL (150-450); RED BLOOD CELL COUNT 2.49 10^6/uL (4.2-5.4); WHITE BLOOD CELL COUNT,WBC 3.8 10^3/uL (5.0-10.0)
[2024-03-10 06:34] LABS: HEMOGLOBIN 6.7 g/dL (12.0-16.0)
[2024-03-10 06:41] LABS: ALBUMIN 2.4 g/dL (3.4-5.0); ANION GAP 9.6 mEq/L (7-13); BILIRUBIN TOTAL 1.6 mg/dL (0.2-1.0); BUN/CREATININE RATIO 6.2 (No establ ref range); CALCIUM 7.4 mg/dL (8.5-10.1); CREATININE 0.81 mg/dL (0.55-1.02); EST CRCL DRUG DOSING (CG) 89.72 mL/min; MAGNESIUM 1.5 mg/dL (1.8-2.4); POTASSIUM,K 3.6 mmol/L (3.5-5.1); PROTEIN TOTAL,TP 6.8 g/dL (6.4-8.2)
[2024-03-10 06:48] LABS: A/G RATIO 0.55
[2024-03-10] MEDS: Octreotide 100 MCG in Sodium Chloride 0.9% 99 ML IV SCH (07:23)
[2024-03-10] MEDS: Magnesium Sulfate/Water 2 GM in Premix Bag 1 BAG IV ONE (07:39)
[2024-03-10] MEDS: Spironolactone 25 MG Tab PO SCH (09:02)
[2024-03-10] MEDS: Acetaminophen 325 MG Tab PO ONE ×2 (09:07→09:11)
[2024-03-10] MEDS: diphenhydrAMINE 50 MG/ML SDV IV ONE ×2 (09:07→09:11)
[2024-03-10] MEDS: Dexamethasone 4 MG/ML SDV IVPUSH ONE ×2 (09:07→09:11)
[2024-03-10] MEDS: oxyCODONE 5 MG Tab PO PRN (20:09)
[2024-03-10] MEDS: Magnesium Sulfate/Water 2 GM in Premix Bag 1 BAG IV SCH (20:10)
[2024-03-11] MEDS: cloNIDine 0.1 MG Tab PO PRN (05:44)
[2024-03-11 06:20] LABS: BASOPHILS PERCENT AUTO 0.4 % (0.0-1.0); EOSINOPHILS PERCENT AUTO 0.2 % (1.0-3.0); HEMATOCRIT 25.2 % (37.0-47.0); HEMOGLOBIN 7.8 g/dL (12.0-16.0); LYMPHOCYTES PERCENT AUTO 33.1 % (20.5-50.1); MEAN CORPUSCULAR HEMOGLOBIN 25.7 pg (27.0-34.0); MEAN CORPUSCULAR VOLUME 82.9 fL (80-100); MONOCYTES PERCENT AUTO 9.3 % (2-8); PLATELET COUNT,PLT 122 10^3/uL (150-450); RED BLOOD CELL COUNT 3.04 10^6/uL (4.2-5.4); WHITE BLOOD CELL COUNT,WBC 4.8 10^3/uL (5.0-10.0)
[2024-03-11 07:03] LABS: ALBUMIN 2.8 g/dL (3.4-5.0); BILIRUBIN TOTAL 2.5 mg/dL (0.2-1.0); BUN/CREATININE RATIO 6.7 (No establ ref range); CALCIUM 8.1 mg/dL (8.5-10.1); CREATININE 1.04 mg/dL (0.55-1.02); EST CRCL DRUG DOSING (CG) 69.88 mL/min; MAGNESIUM 2.1 mg/dL (1.8-2.4); PROTEIN TOTAL,TP 7.5 g/dL (6.4-8.2)
[2024-03-11 07:05] LABS: A/G RATIO 0.6
[2024-03-11] MEDS: MVI, Adult with Vitamin K 10 ML, Folic Acid 1 MG, Thiamine 100 MG in Lactated Ringers 1... IV ONE (08:23)
[2024-03-11] MEDS: Lidocaine 1% 5 ML VIAL INJECT ONE (09:56)
[2024-03-11] MEDS: Morphine 2 MG/ML SYRINGE IVPUSH ONE (09:56)
[2024-03-11] MEDS: HYDROmorphone 1 MG/ML Syringe IVPUSH ONE (09:59)
[2024-03-11] MEDS: MVI, Adult with Vitamin K 10 ML, Folic Acid 1 MG, Thiamine 200 MG in Lactated Ringers 1... IV ONE (10:00)
[2024-03-11] MEDS: Albumin Human 50 GM in Premix Bag 1 BAG IV SCH (10:40)
[2024-03-11] MEDS: Ciprofloxacin in D5W 200 MG in Premix Bag 1 BAG IV ONE (13:41)
[2024-03-11] MEDS: Thiamine 100 MG Tab PO SCH (21:53)
[2024-03-11] MEDS: Folic Acid 1 MG Tab PO SCH (21:53)
[2024-03-11] MEDS: Multivitamin Tab PO SCH (21:53)
[2024-03-12] MEDS ORDERED: Ciprofloxacin in D5W 200 MG in Premix Bag 1 BAG IV SCH (05:00)
[2024-03-12 05:02] VITALS: BP 140/79; PULSE 74
[2024-03-12] MEDS: Ciprofloxacin 500 MG Tab PO ONE (05:02)
[2024-03-12 06:35] LABS: BASOPHILS PERCENT AUTO 0.4 % (0.0-1.0); EOSINOPHILS PERCENT AUTO 1.7 % (1.0-3.0); HEMATOCRIT 26.9 % (37.0-47.0); HEMOGLOBIN 8.1 g/dL (12.0-16.0); LYMPHOCYTES PERCENT AUTO 26.9 % (20.5-50.1); MEAN CORPUSCULAR HEMOGLOBIN 25.2 pg (27.0-34.0); MEAN CORPUSCULAR HGB CONC 30.1 g/dL (33.0-35.0); MEAN CORPUSCULAR VOLUME 83.5 fL (80-100); MONOCYTES PERCENT AUTO 8.4 % (2-8); NEUTROPHILS PERCENT AUTO 62.6 % (42.2-75.2); PLATELET COUNT,PLT 104 10^3/uL (150-450); RED BLOOD CELL COUNT 3.22 10^6/uL (4.2-5.4); WHITE BLOOD CELL COUNT,WBC 7.2 10^3/uL (5.0-10.0)
[2024-03-12 06:51] LABS: ANION GAP 11.7 mEq/L (7-13); BILIRUBIN TOTAL 2.4 mg/dL (0.2-1.0); BUN/CREATININE RATIO 7.8 (No establ ref range); CALCIUM 7.8 mg/dL (8.5-10.1); CREATININE 1.93 mg/dL (0.55-1.02); EST CRCL DRUG DOSING (CG) 37.66 mL/min; MAGNESIUM 1.6 mg/dL (1.8-2.4); POTASSIUM,K 3.7 mmol/L (3.5-5.1); PROTEIN TOTAL,TP 7.3 g/dL (6.4-8.2)
[2024-03-12 06:53] LABS: A/G RATIO 0.7
== END 2024-03-12 06:52 | disposition home or self-care (01) ==
LOC: DL.ED 07:24 → DL.MS 09:54
PROVIDERS: ADMIT Internal Medicine; ATTEND Internal Medicine
PROC: 0W9G3ZZ Drainage of Peritoneal Cavity, Percutaneous Approach (ICD-10-PCS; principal; 2024-03-11)
DX: K74.60 Unspecified cirrhosis of liver (principal); F10.129 Alcohol abuse with intoxication, unspecified; K76.6 Portal hypertension; R73.9 Hyperglycemia, unspecified; E83.42 Hypomagnesemia; E80.6 Other disorders of bilirubin metabolism; R16.2 Hepatomegaly with splenomegaly, not elsewhere classified; D64.9 Anemia, unspecified; I10 Essential (primary) hypertension; G89.29 Other chronic pain; K72.00 Acute and subacute hepatic failure without coma; R18.8 Other ascites; R51.9 Headache, unspecified; E43 Unspecified severe protein-calorie malnutrition; E66.01 Morbid (severe) obesity due to excess calories; Z88.1 Allergy status to other antibiotic agents; Y90.7 Blood alcohol level of 200-239 mg/100 ml; Z88.5 Allergy status to narcotic agent; Z88.8 Allergy status to other drugs, medicaments and biological substances; Z79.899 Other long term (current) drug therapy; Z87.891 Personal history of nicotine dependence; Z68.43 Body mass index [BMI] 50.0-59.9, adult
CPT/HCPCS: 36415; 36430; 49083; 80053; 80305-QW; 80307; 81001; 83735; 85025; 85610; 86850; 86900; 86901; 86920; 86922; 87070; 93005; 93010; 96365; 96375; 99285; 99285-25; A9270-GY; C9113; J0744; J1100; J1200; J1940; J2060; J2270; J2354-JA; J2405; J3360; J3411; J3475; J3480; J3490; J7120; P9016; P9047

== ENCOUNTER 2024-05-07 08:23 | Emergency (ER) | payer BC ==
[2024-05-07 09:15] LABS: BASOPHILS PERCENT AUTO 0.5 % (0.0-1.0); EOSINOPHILS PERCENT AUTO 2.6 % (1.0-3.0); HEMATOCRIT 22.3 % (37.0-47.0); LYMPHOCYTES PERCENT AUTO 51.5 % (20.5-50.1); MEAN CORPUSCULAR HEMOGLOBIN 22.7 pg (27.0-34.0); MEAN CORPUSCULAR HGB CONC 29.6 g/dL (33.0-35.0); MEAN CORPUSCULAR VOLUME 76.6 fL (80-100); MONOCYTES PERCENT AUTO 6.3 % (2-8); NEUTROPHILS PERCENT AUTO 39.1 % (42.2-75.2); PLATELET COUNT,PLT 56 10^3/uL (150-450); RED BLOOD CELL COUNT 2.91 10^6/uL (4.2-5.4); WHITE BLOOD CELL COUNT,WBC 4.3 10^3/uL (5.0-10.0)
[2024-05-07] MEDS: Ondansetron 4 MG/2 ML SDV IVPUSH ONE (09:17)
[2024-05-07] MEDS: Famotidine 20 MG/2 ML SDV IVPUSH ONE (09:17)
[2024-05-07 09:24] LABS: ALANINE AMINOTRANSFERASE,ALT 43 U/L (14-59); ALBUMIN 2.1 g/dL (3.4-5.0); ALKALINE PHOSPHATASE 262 U/L (46-116); ANION GAP 13.7 mEq/L (7-13); ASPARTATE AMNIOTRANSFERASE,AST 175 U/L (15-37); BILIRUBIN TOTAL 1.5 mg/dL (0.2-1.0); BLOOD UREA NITROGEN,BUN 2 mg/dL (7-18); BUN/CREATININE RATIO 2.8 (No establ ref range); CALCIUM 7.8 mg/dL (8.5-10.1); CARBON DIOXIDE,CO2 27 mmol/L (21-32); CHLORIDE,CL 106 mmol/L (98-107); CREATININE 0.72 mg/dL (0.55-1.02); EST CRCL DRUG DOSING (CG) 109.08 mL/min; ETHANOL BLOOD MEDICAL 168 mg/dL (0); GLUCOSE RANDOM 105 mg/dL (70-99); LIPASE 59 U/L (16-77); MAGNESIUM 1.3 mg/dL (1.8-2.4); POTASSIUM,K 3.7 mmol/L (3.5-5.1); PROTEIN TOTAL,TP 7.5 g/dL (6.4-8.2); SODIUM,NA 143 mmol/L (136-145)
[2024-05-07 09:37] LABS: A/G RATIO 0.39; ESTIMATED GFR 114 mL/min (>=60)
[2024-05-07 09:41] LABS: APPEARANCE,URINE CLEAR (CLEAR); BILIRUBIN,URINE NEGATIVE (NEGATIVE); COLOR,URINE YELLOW (YELLOW); GLUCOSE,URINE NEGATIVE (NEGATIVE); KETONES,URINE NEGATIVE (NEGATIVE); LEUKOCYTE ESTERASE,URINE NEGATIVE (NEGATIVE); NITRITE,URINE NEGATIVE (NEGATIVE); OCCULT BLOOD,URINE MODERATE (NEGATIVE); PH,URINE 8.5 (5.0-9.0); PROTEIN,URINE NEGATIVE (NEGATIVE)
[2024-05-07 09:43] LABS: HEMOGLOBIN 6.6 g/dL (12.0-16.0)
[2024-05-07 09:46] LABS: AMPHETAMINES,URINE NEGATIVE (NEGATIVE); BARBITURATES,URINE NEGATIVE (NEGATIVE); BENZODIAZEPINE,URINE NEGATIVE (NEGATIVE); MDMA (ECSTASY), URINE NEGATIVE (NEGATIVE); METHADONE,URINE NEGATIVE (NEGATIVE); METHAMPHETAMINES,URINE NEGATIVE (NEGATIVE); OPIATES,URINE NEGATIVE (NEGATIVE); OXYCODONE,URINE NEGATIVE (NEGATIVE); PHENCYCLIDINE,URINE NEGATIVE (NEGATIVE); TCA,URINE NEGATIVE (NEGATIVE)
[2024-05-07 09:52] LABS: INR 1.8 (0.9-1.2); PROTHROMBIN TIME 17.6 SEC (9.0-12.0)
[2024-05-07 09:54] LABS: HCG QUALITATIVE,SERUM NEGATIVE (NEGATIVE)
[2024-05-07 09:55] LABS: BACTERIA,URINE FEW /HPF (0-FEW/HPF); EPITHELIAL CELLS,URINE FEW /HPF (NOT SEEN); MUCUS,URINE FEW /LPF (NOT SEEN); RBC,URINE 20-30 /HPF (0-5); WBC,URINE 0-5 /HPF (0-5/HPF)
[2024-05-07] MEDS: Iopamidol 612 MG/ML 100 ML Bottle IVPUSH ONE (10:06)
[2024-05-07] MEDS: Magnesium Sulfate/Water 4 GM in Premix Bag 1 BAG IV ONE (10:09)
[2024-05-07] MEDS: Sodium Chloride 0.9% 1,000 ML IV ONE (10:09)
[2024-05-07] MEDS: Magnesium Sulfate/Water 100 ML ONE (10:43)
[2024-05-07] MEDS: Pantoprazole 40 MG Vial IVPUSH ONE (11:05)
[2024-05-07 12:32] VITALS: BP 125/67; PULSE 83
[2024-05-07] MEDS: Magnesium Sulfate/Water 50 ML ONE (12:53)
== END 2024-05-07 12:57 ==
LOC: DL.ED 08:23
DX: S82.852A Displaced trimalleolar fracture of left lower leg, initial encounter for closed fracture (principal); K70.30 Alcoholic cirrhosis of liver without ascites; D62 Acute posthemorrhagic anemia; K92.2 Gastrointestinal hemorrhage, unspecified; E83.42 Hypomagnesemia; I10 Essential (primary) hypertension; F10.10 Alcohol abuse, uncomplicated; E66.9 Obesity, unspecified; Z88.1 Allergy status to other antibiotic agents; Z88.8 Allergy status to other drugs, medicaments and biological substances; Z79.899 Other long term (current) drug therapy; X58.XXXA Exposure to other specified factors, initial encounter
CPT/HCPCS: 36415; 36430; 73610; 74177; 80053; 80305; 80307; 81001; 82272; 83690; 83735; 84703; 85025; 85610; 86850; 86900; 86901; 86920; 86922; 93005; 93010; 96361; 96374; 96375; 99285; J2405; J2470; J3475; J3490; J7030; P9016; Q9967

== ENCOUNTER 2024-05-19 22:29 | Emergency (ER) | payer BC ==
[2024-05-19 22:53] LABS: BASOPHILS PERCENT AUTO 0.8 % (0.0-1.0); EOSINOPHILS PERCENT AUTO 2.3 % (1.0-3.0); LYMPHOCYTES PERCENT AUTO 35.9 % (20.5-50.1); MEAN CORPUSCULAR HEMOGLOBIN 25.5 pg (27.0-34.0); MEAN CORPUSCULAR HGB CONC 30.8 g/dL (33.0-35.0); MEAN CORPUSCULAR VOLUME 82.8 fL (80-100); MONOCYTES PERCENT AUTO 8.6 % (2-8); NEUTROPHILS PERCENT AUTO 52.4 % (42.2-75.2); PLATELET COUNT,PLT 165 10^3/uL (150-450); RED BLOOD CELL COUNT 1.92 10^6/uL (4.2-5.4); WHITE BLOOD CELL COUNT,WBC 8.3 10^3/uL (5.0-10.0)
[2024-05-19 22:56] LABS: HEMATOCRIT 15.9 % (37.0-47.0); HEMOGLOBIN 4.9 g/dL (12.0-16.0)
[2024-05-19 23:15] LABS: INR 1.6 (0.9-1.2); PROTHROMBIN TIME 15.8 SEC (9.0-12.0); PTT,PARTIAL THROMBOPLSTIN TIME 29.9 SEC (22.0-34.0)
[2024-05-19 23:15] LABS: ALBUMIN 1.6 g/dL (3.4-5.0); ANION GAP 12.4 mEq/L (7-13); BILIRUBIN TOTAL 2.3 mg/dL (0.2-1.0); BUN/CREATININE RATIO 9.9 (No establ ref range); C-REACTIVE PROTEIN 1.15 ng/dL (<=0.50); CALCIUM 7.2 mg/dL (8.5-10.1); CREATININE 0.91 mg/dL (0.55-1.02); EST CRCL DRUG DOSING (CG) 79.86 mL/min; POTASSIUM,K 3.4 mmol/L (3.5-5.1); PROTEIN TOTAL,TP 5.9 g/dL (6.4-8.2)
[2024-05-19 23:29] LABS: A/G RATIO 0.37
[2024-05-19 23:30] LABS: LACTIC ACID 3.2 mmol/L (0.4-2.0)
[2024-05-19] MEDS: Iopamidol 612 MG/ML 100 ML Bottle IVPUSH ONE (23:49)
[2024-05-20] MEDS: Ondansetron 4 MG/2 ML SDV IVPUSH ONE (00:08)
[2024-05-20] MEDS: Piperacillin/Tazobactam 3.375 GM in Sodium Chloride 0.9% 100 ML IV ONE (00:25)
[2024-05-20] MEDS: Potassium Chloride 10 MEQ Tab.ER PO ONE (00:25)
[2024-05-20 01:16] VITALS: BP 105/82; PULSE 101
[2024-05-20] MEDS: Phytonadione 1 MG/0.5 ML Syringe IM ONE (01:54)
== END 2024-05-20 02:04 ==
LOC: DL.ED 22:29
DX: K92.2 Gastrointestinal hemorrhage, unspecified (principal); D64.9 Anemia, unspecified; K70.31 Alcoholic cirrhosis of liver with ascites; D68.2 Hereditary deficiency of other clotting factors; I10 Essential (primary) hypertension; E66.9 Obesity, unspecified; Z79.899 Other long term (current) drug therapy; Z88.1 Allergy status to other antibiotic agents; Z88.8 Allergy status to other drugs, medicaments and biological substances; Z91.048 Other nonmedicinal substance allergy status; Z68.43 Body mass index [BMI] 50.0-59.9, adult
CPT/HCPCS: 36415; 36430; 74177; 80053; 80307; 83605; 85025; 85610; 85730; 86140; 86850; 86900; 86901; 86920; 86922; 96365; 96372; 96375; 99285-25; 99291; 99292; A9270-GY; J2405; J2543; J3490; P9016; Q9967

== ENCOUNTER 2024-05-29 21:55 | Inpatient (IN) | payer BC ==
[2024-05-29 22:07] LABS: BASOPHILS PERCENT AUTO 0.9 % (0.0-1.0); EOSINOPHILS PERCENT AUTO 2.3 % (1.0-3.0); HEMATOCRIT 24.9 % (37.0-47.0); HEMOGLOBIN 7.8 g/dL (12.0-16.0); LYMPHOCYTES PERCENT AUTO 23.1 % (20.5-50.1); MEAN CORPUSCULAR HEMOGLOBIN 25.5 pg (27.0-34.0); MEAN CORPUSCULAR HGB CONC 31.3 g/dL (33.0-35.0); MEAN CORPUSCULAR VOLUME 81.4 fL (80-100); MONOCYTES PERCENT AUTO 7.6 % (2-8); NEUTROPHILS PERCENT AUTO 66.1 % (42.2-75.2); PLATELET COUNT,PLT 158 10^3/uL (150-450); RED BLOOD CELL COUNT 3.06 10^6/uL (4.2-5.4); WHITE BLOOD CELL COUNT,WBC 8.5 10^3/uL (5.0-10.0)
[2024-05-29] MEDS: Phenylephrine Supp RECTAL ONE (23:04)
[2024-05-29] MEDS: fentaNYL 100 MCG/2 ML SDV IVPUSH ONE (23:06)
[2024-05-29 23:19] LABS: ALANINE AMINOTRANSFERASE,ALT 52 U/L (14-59); ALBUMIN 2.2 g/dL (3.4-5.0); ALKALINE PHOSPHATASE 227 U/L (46-116); ANION GAP 13.8 mEq/L (7-13); ASPARTATE AMNIOTRANSFERASE,AST 208 U/L (15-37); BILIRUBIN TOTAL 2.8 mg/dL (0.2-1.0); BLOOD UREA NITROGEN,BUN 8 mg/dL (7-18); CALCIUM 7.8 mg/dL (8.5-10.1); CARBON DIOXIDE,CO2 25 mmol/L (21-32); CHLORIDE,CL 105 mmol/L (98-107); ETHANOL BLOOD MEDICAL 194 mg/dL (0); GLUCOSE RANDOM 116 mg/dL (70-99); MAGNESIUM 1.4 mg/dL (1.8-2.4); POTASSIUM,K 3.8 mmol/L (3.5-5.1); PROTEIN TOTAL,TP 6.8 g/dL (6.4-8.2); SODIUM,NA 140 mmol/L (136-145)
[2024-05-29 23:26] LABS: A/G RATIO 0.48; ESTIMATED GFR 100 mL/min (>=60)
[2024-05-29] MEDS ORDERED: Sodium Chloride 0.9% 10 ML Syringe FLUSH PRN (23:45)
[2024-05-29] MEDS ORDERED: Ondansetron 4 MG/2 ML SDV IVPUSH PRN (23:45)
[2024-05-29] MEDS ORDERED: oxyCODONE 5 MG Tab PO PRN (23:45)
[2024-05-29] MEDS ORDERED: fentaNYL 100 MCG/2 ML SDV IVPUSH PRN (23:49)
[2024-05-29] MEDS ORDERED: Metoprolol Tartrate 5 MG/5 ML SDV IVPUSH PRN (23:50)
[2024-05-29] MEDS ORDERED: hydrALAZINE 20 MG/ML SDV IVPUSH PRN (23:50)
[2024-05-29 23:53] LABS: INR 1.6 (0.9-1.2); PROTHROMBIN TIME 16.2 SEC (9.0-12.0); PTT,PARTIAL THROMBOPLSTIN TIME 35.5 SEC (22.0-34.0)
[2024-05-30] MEDS: Pantoprazole 40 MG Vial IVPUSH ONE (00:44)
[2024-05-30] MEDS: Dexamethasone 4 MG/ML SDV IVPUSH ONE (00:44)
[2024-05-30] MEDS: Melatonin 3 MG Tab PO PRN (00:45)
[2024-05-30] MEDS: Octreotide 100 MCG in Sodium Chloride 0.9% 99 ML IV SCH ×2 (00:45→00:59)
[2024-05-30] MEDS: MVI, Adult with Vitamin K 10 ML, Folic Acid 1 MG, Thiamine 100 MG in Lactated Ringers 1... IV ONE (00:46)
[2024-05-30] MEDS: Magnesium Sulfate/Water 2 GM in Premix Bag 1 BAG IV ONE (00:46)
[2024-05-30] MEDS: Albumin Human 50 GM in Premix Bag 1 BAG IV ONE ×2 (00:46→00:59)
[2024-05-30] MEDS: Phytonadione 10 MG in Sodium Chloride 0.9% 50 ML IV ONE (00:47)
[2024-05-30] MEDS: Acetaminophen/Butalbital/Caffeine 325-50-40 MG Tab PO ONE (01:27)
[2024-05-30] MEDS: Promethazine 25 MG/ML SDV IM PRN (03:21)
[2024-05-30 03:38] LABS: APPEARANCE,URINE CLEAR (CLEAR); BILIRUBIN,URINE SMALL (NEGATIVE); COLOR,URINE YELLOW (YELLOW); GLUCOSE,URINE NEGATIVE (NEGATIVE); KETONES,URINE NEGATIVE (NEGATIVE); LEUKOCYTE ESTERASE,URINE TRACE (NEGATIVE); NITRITE,URINE NEGATIVE (NEGATIVE); OCCULT BLOOD,URINE SMALL (NEGATIVE); PH,URINE 6.5 (5.0-9.0); PROTEIN,URINE NEGATIVE (NEGATIVE)
[2024-05-30 03:54] LABS: BACTERIA,URINE MODERATE /HPF (0-FEW/HPF); EPITHELIAL CELLS,URINE FEW /HPF (NOT SEEN); MUCUS,URINE MODERATE /LPF (NOT SEEN)
[2024-05-30 04:09] LABS: AMPHETAMINES,URINE POSITIVE (NEGATIVE); BARBITURATES,URINE POSITIVE (NEGATIVE); BENZODIAZEPINE,URINE NEGATIVE (NEGATIVE); MDMA (ECSTASY), URINE NEGATIVE (NEGATIVE); METHADONE,URINE NEGATIVE (NEGATIVE); METHAMPHETAMINES,URINE POSITIVE (NEGATIVE); OPIATES,URINE NEGATIVE (NEGATIVE); OXYCODONE,URINE NEGATIVE (NEGATIVE); PHENCYCLIDINE,URINE NEGATIVE (NEGATIVE); TCA,URINE NEGATIVE (NEGATIVE)
[2024-05-30] MEDS: Metoprolol Tartrate 5 MG/5 ML SDV IVPUSH ONE (04:20)
[2024-05-30] MEDS: Sucralfate Suspension 1 GM/10 ML Cup PO SCH (05:10)
[2024-05-30] MEDS: Pantoprazole 40 MG Tab.CR PO SCH (05:10)
[2024-05-30 06:43] LABS: BASOPHILS PERCENT AUTO 0.2 % (0.0-1.0); HEMATOCRIT 21.3 % (37.0-47.0); LYMPHOCYTES PERCENT AUTO 18.7 % (20.5-50.1); MEAN CORPUSCULAR HEMOGLOBIN 26.7 pg (27.0-34.0); MEAN CORPUSCULAR HGB CONC 31.5 g/dL (33.0-35.0); MEAN CORPUSCULAR VOLUME 84.9 fL (80-100); MONOCYTES PERCENT AUTO 1.4 % (2-8); NEUTROPHILS PERCENT AUTO 79.7 % (42.2-75.2); PLATELET COUNT,PLT 114 10^3/uL (150-450); RED BLOOD CELL COUNT 2.51 10^6/uL (4.2-5.4); WHITE BLOOD CELL COUNT,WBC 4.2 10^3/uL (5.0-10.0)
[2024-05-30 06:52] LABS: HEMOGLOBIN 6.7 g/dL (12.0-16.0)
[2024-05-30 07:11] LABS: ANION GAP 15.1 mEq/L (7-13); BILIRUBIN TOTAL 3.1 mg/dL (0.2-1.0); BUN/CREATININE RATIO 8.5 (No establ ref range); CREATININE 0.82 mg/dL (0.55-1.02); EST CRCL DRUG DOSING (CG) 88.63 mL/min; MAGNESIUM 1.9 mg/dL (1.8-2.4); POTASSIUM,K 4.1 mmol/L (3.5-5.1); PROTEIN TOTAL,TP 6.9 g/dL (6.4-8.2)
[2024-05-30 07:13] LABS: A/G RATIO 0.77
[2024-05-30] MEDS: Ibuprofen 600 MG Tab PO PRN (07:52)
[2024-05-30] MEDS ORDERED: Naloxone 2 MG/2 ML Syringe IVPUSH PRN (08:29)
[2024-05-30] MEDS: Dexamethasone 6 MG TABLET PO SCH (08:45)
[2024-05-30] MEDS: diphenhydrAMINE 50 MG/ML SDV IV ONE (08:46)
[2024-05-30] MEDS: Lactulose Soln 10 GM/15 ML 30 ML UD Cup PO SCH (08:46)
[2024-05-30] MEDS: Phytonadione 5 MG Tab PO SCH (08:46)
[2024-05-30] MEDS ORDERED: Non-Formulary Medication 1 Each (Ciprofloxacin Hcl [Cipro] 250 MG Tablet) PO SCH (09:00)
[2024-05-30] MEDS: Sodium Chloride 0.9% 10 ML Syringe FLUSH SCH (09:49)
[2024-05-30] MEDS: Acetaminophen/Butalbital/Caffeine 325-50-40 MG Tab PO PRN (09:50)
[2024-05-30] MEDS ORDERED: Mineral Oil/Petrolatum/Phenylephrine/Shark Liver Oil Oint 57 GM Tube RECTAL PRN (10:10)
[2024-05-30] MEDS: Morphine 2 MG/ML SYRINGE IVPUSH PRN (11:15)
[2024-05-30] MEDS: Midodrine 5 MG Tab PO ONE (11:18)
[2024-05-30 12:09] LABS: HEMOGLOBIN 7.6 g/dL (12.0-16.0)
[2024-05-30] MEDS ORDERED: Folic Acid 1 MG Tab PO SCH (16:45)
[2024-05-30] MEDS: Multivitamin Tab PO SCH (18:13)
[2024-05-30] MEDS: Thiamine 100 MG Tab PO SCH (19:44)
[2024-05-30] MEDS: Ciprofloxacin 500 MG Tab PO SCH (19:45)
[2024-05-30] MEDS: Propranolol 20 MG Tab PO SCH (19:52)
[2024-05-30] MEDS: Witch Hazel Medicated Pads 100/Jar TOP PRN (22:11)
[2024-05-30] MEDS: Saccharomyces Boulardii (Probiotic) 250 MG Cap PO SCH (22:45)
[2024-05-30] MEDS: Midodrine 5 MG Tab PO SCH (22:46)
[2024-05-30] MEDS: Menthol/Zinc Oxide Ointment 113 GM Tube TOP PRN (23:08)
[2024-05-30] MEDS: diphenhydrAMINE 50 MG/ML SDV IVPUSH ONE (23:49)
[2024-05-31] MEDS: Albuterol/Ipratropium 3.0-0.5 MG/3 ML Neb Soln NEB PRN (05:57)
[2024-05-31 06:19] LABS: BASOPHILS PERCENT AUTO 0.2 % (0.0-1.0); HEMATOCRIT 24.6 % (37.0-47.0); HEMOGLOBIN 7.6 g/dL (12.0-16.0); LYMPHOCYTES PERCENT AUTO 17.3 % (20.5-50.1); MEAN CORPUSCULAR HEMOGLOBIN 25.9 pg (27.0-34.0); MEAN CORPUSCULAR HGB CONC 30.9 g/dL (33.0-35.0); MEAN CORPUSCULAR VOLUME 83.7 fL (80-100); MONOCYTES PERCENT AUTO 7.9 % (2-8); NEUTROPHILS PERCENT AUTO 74.6 % (42.2-75.2); PLATELET COUNT,PLT 142 10^3/uL (150-450); RED BLOOD CELL COUNT 2.94 10^6/uL (4.2-5.4); WHITE BLOOD CELL COUNT,WBC 5.5 10^3/uL (5.0-10.0)
[2024-05-31 06:37] LABS: INR 1.7 (0.9-1.2); PROTHROMBIN TIME 17.2 SEC (9.0-12.0)
[2024-05-31 06:43] LABS: ALBUMIN 2.8 g/dL (3.4-5.0); ANION GAP 11.1 mEq/L (7-13); BILIRUBIN TOTAL 2.9 mg/dL (0.2-1.0); C-REACTIVE PROTEIN 1.6 ng/dL (<=0.50); CALCIUM 8.4 mg/dL (8.5-10.1); CREATININE 0.91 mg/dL (0.55-1.02); EST CRCL DRUG DOSING (CG) 79.86 mL/min; MAGNESIUM 1.8 mg/dL (1.8-2.4); POTASSIUM,K 4.1 mmol/L (3.5-5.1); PROTEIN TOTAL,TP 6.8 g/dL (6.4-8.2)
[2024-05-31 07:06] LABS: A/G RATIO 0.7
[2024-05-31] MEDS: Folic Acid 1 MG Tab PO SCH (08:42)
[2024-05-31 12:18] VITALS: BP 132/70; PULSE 58
== END 2024-05-31 13:00 | DRG 254 ==
LOC: DL.ED 21:55 → UNDOADMOB 23:30 → DL.MS 23:30 → OBSVTOIN 23:45 → INTOOBSV 23:45 → UNDOADMOB 23:45 → DL.MS 23:45 → OBSVTOIN 05-30 09:24
PROVIDERS: ADMIT Internal Medicine; ATTEND Internal Medicine
PROC: 30233N1 Transfusion of Nonautologous Red Blood Cells into Peripheral Vein, Percutaneous Approach (ICD-10-PCS; principal; 2024-05-30)
DX: K64.8 Other hemorrhoids (principal); K70.40 Alcoholic hepatic failure without coma; E43 Unspecified severe protein-calorie malnutrition; K76.6 Portal hypertension; K70.31 Alcoholic cirrhosis of liver with ascites; D68.8 Other specified coagulation defects; I85.10 Secondary esophageal varices without bleeding; E88.09 Other disorders of plasma-protein metabolism, not elsewhere classified; D62 Acute posthemorrhagic anemia; K70.11 Alcoholic hepatitis with ascites; I95.9 Hypotension, unspecified; K64.4 Residual hemorrhoidal skin tags; K62.5 Hemorrhage of anus and rectum; I10 Essential (primary) hypertension; E66.01 Morbid (severe) obesity due to excess calories; I86.8 Varicose veins of other specified sites; F10.229 Alcohol dependence with intoxication, unspecified; Y90.6 Blood alcohol level of 120-199 mg/100 ml; R73.9 Hyperglycemia, unspecified; E83.42 Hypomagnesemia; N39.0 Urinary tract infection, site not specified; F19.10 Other psychoactive substance abuse, uncomplicated; Z88.1 Allergy status to other antibiotic agents; Z88.8 Allergy status to other drugs, medicaments and biological substances; Z79.899 Other long term (current) drug therapy; Z79.2 Long term (current) use of antibiotics; Z68.42 Body mass index [BMI] 45.0-49.9, adult
CPT/HCPCS: 36415; 36430; 76705; 80053; 80305-QW; 80307; 81001; 81025; 82140; 83735; 85014; 85018; 85025; 85610; 85730; 86140; 86850; 86900; 86901; 86920; 86922; 87086; 87088; 87186; 96365; 96366; 96367; 96368; 96372; 96374; 96375; 99285; 99285-25; A9270-GY; G0378; J1100; J1200; J2270; J2354-JA; J2470; J2550; J3010; J3411; J3430; J3475; J3490; J7120; J7620-GY; J8540; P9016; P9047

== ENCOUNTER 2024-06-12 04:45 | Emergency (ER) | payer BC ==
[2024-06-12 05:00] VITALS: BP 126/99; PULSE 84
[2024-06-12] MEDS ORDERED: Sodium Chloride 0.9% 10 ML Syringe FLUSH PRN (05:11)
[2024-06-12 05:15] LABS: BASOPHILS PERCENT AUTO 0.6 % (0.0-1.0); EOSINOPHILS PERCENT AUTO 2.3 % (1.0-3.0); HEMATOCRIT 27.1 % (37.0-47.0); HEMOGLOBIN 8.3 g/dL (12.0-16.0); LYMPHOCYTES PERCENT AUTO 51.3 % (20.5-50.1); MEAN CORPUSCULAR HEMOGLOBIN 25.4 pg (27.0-34.0); MEAN CORPUSCULAR HGB CONC 30.6 g/dL (33.0-35.0); MEAN CORPUSCULAR VOLUME 82.9 fL (80-100); MONOCYTES PERCENT AUTO 6.2 % (2-8); NEUTROPHILS PERCENT AUTO 39.6 % (42.2-75.2); PLATELET COUNT,PLT 74 10^3/uL (150-450); RED BLOOD CELL COUNT 3.27 10^6/uL (4.2-5.4); WHITE BLOOD CELL COUNT,WBC 7.1 10^3/uL (5.0-10.0)
[2024-06-12] MEDS: Sodium Chloride 0.9% 1,000 ML IV ONE (05:15)
[2024-06-12 05:27] LABS: ALANINE AMINOTRANSFERASE,ALT 50 U/L (14-59); ALBUMIN 2.6 g/dL (3.4-5.0); ALKALINE PHOSPHATASE 221 U/L (46-116); ANION GAP 13.4 mEq/L (7-13); ASPARTATE AMNIOTRANSFERASE,AST 154 U/L (15-37); BILIRUBIN TOTAL 1.6 mg/dL (0.2-1.0); BLOOD UREA NITROGEN,BUN 5 mg/dL (7-18); BUN/CREATININE RATIO 5.9 (No establ ref range); CALCIUM 7.6 mg/dL (8.5-10.1); CARBON DIOXIDE,CO2 26 mmol/L (21-32); CHLORIDE,CL 110 mmol/L (98-107); CREATININE 0.85 mg/dL (0.55-1.02); GLUCOSE RANDOM 110 mg/dL (70-99); POTASSIUM,K 3.4 mmol/L (3.5-5.1); PROTEIN TOTAL,TP 7.5 g/dL (6.4-8.2); SODIUM,NA 146 mmol/L (136-145)
[2024-06-12 05:40] LABS: A/G RATIO 0.53; ESTIMATED GFR 93 mL/min (>=60); ETHANOL BLOOD MEDICAL 382 mg/dL (0)
== END 2024-06-12 06:55 | disposition home or self-care (01) ==
LOC: DL.ED 04:45
DX: K70.31 Alcoholic cirrhosis of liver with ascites (principal); F10.120 Alcohol abuse with intoxication, uncomplicated; I10 Essential (primary) hypertension; E66.9 Obesity, unspecified; Z79.899 Other long term (current) drug therapy; Y90.8 Blood alcohol level of 240 mg/100 ml or more; Z91.048 Other nonmedicinal substance allergy status; Z88.1 Allergy status to other antibiotic agents; Z88.5 Allergy status to narcotic agent
CPT/HCPCS: 36415; 80053; 80307; 82140; 85025; 96360; 99284; 99285; J7030

== ENCOUNTER 2024-06-12 23:01 | Emergency (ER) | payer BC ==
[2024-06-12] MEDS: Sodium Chloride 0.9% 10 ML Syringe FLUSH PRN (22:40)
[2024-06-12] MEDS: Sodium Chloride 0.9% 1,000 ML IV ONE (22:41)
[2024-06-12 22:59] LABS: BASOPHILS PERCENT AUTO 0.5 % (0.0-1.0); EOSINOPHILS PERCENT AUTO 1.6 % (1.0-3.0); HEMATOCRIT 27.3 % (37.0-47.0); HEMOGLOBIN 8.5 g/dL (12.0-16.0); LYMPHOCYTES PERCENT AUTO 47.6 % (20.5-50.1); MEAN CORPUSCULAR HEMOGLOBIN 25.9 pg (27.0-34.0); MEAN CORPUSCULAR HGB CONC 31.1 g/dL (33.0-35.0); MEAN CORPUSCULAR VOLUME 83.2 fL (80-100); MONOCYTES PERCENT AUTO 5.1 % (2-8); NEUTROPHILS PERCENT AUTO 45.2 % (42.2-75.2); PLATELET COUNT,PLT 146 10^3/uL (150-450); RED BLOOD CELL COUNT 3.28 10^6/uL (4.2-5.4); WHITE BLOOD CELL COUNT,WBC 8.7 10^3/uL (5.0-10.0)
[2024-06-12 23:19] LABS: ALANINE AMINOTRANSFERASE,ALT 53 U/L (14-59); ALBUMIN 2.7 g/dL (3.4-5.0); ALKALINE PHOSPHATASE 236 U/L (46-116); ANION GAP 12.4 mEq/L (7-13); ASPARTATE AMNIOTRANSFERASE,AST 165 U/L (15-37); BILIRUBIN TOTAL 1.9 mg/dL (0.2-1.0); BLOOD UREA NITROGEN,BUN 5 mg/dL (7-18); BUN/CREATININE RATIO 6.5 (No establ ref range); CALCIUM 7.7 mg/dL (8.5-10.1); CARBON DIOXIDE,CO2 27 mmol/L (21-32); CHLORIDE,CL 108 mmol/L (98-107); CREATININE 0.77 mg/dL (0.55-1.02); GLUCOSE RANDOM 106 mg/dL (70-99); POTASSIUM,K 3.4 mmol/L (3.5-5.1); SODIUM,NA 144 mmol/L (136-145)
[2024-06-12 23:21] LABS: A/G RATIO 0.51; ESTIMATED GFR 105 mL/min (>=60); ETHANOL BLOOD MEDICAL 386 mg/dL (0)
[2024-06-13 00:40] VITALS: BP 115/103; PULSE 85
== END 2024-06-13 00:47 | disposition home or self-care (01) ==
LOC: DL.ED 23:01
DX: K70.31 Alcoholic cirrhosis of liver with ascites (principal); I10 Essential (primary) hypertension; E66.9 Obesity, unspecified; Z79.899 Other long term (current) drug therapy; Z88.5 Allergy status to narcotic agent; Z88.1 Allergy status to other antibiotic agents; Z91.048 Other nonmedicinal substance allergy status
CPT/HCPCS: 36415; 73610; 80053; 80307; 85025; 99284; J7030; J3490

== ENCOUNTER 2024-06-15 21:43 | Emergency (ER) | payer BC ==
[2024-06-15 22:23] LABS: BASOPHILS PERCENT AUTO 0.5 % (0.0-1.0); EOSINOPHILS PERCENT AUTO 1.9 % (1.0-3.0); HEMATOCRIT 25.5 % (37.0-47.0); HEMOGLOBIN 7.9 g/dL (12.0-16.0); LYMPHOCYTES PERCENT AUTO 45.2 % (20.5-50.1); MEAN CORPUSCULAR HEMOGLOBIN 26.2 pg (27.0-34.0); MEAN CORPUSCULAR VOLUME 84.7 fL (80-100); MONOCYTES PERCENT AUTO 5.8 % (2-8); NEUTROPHILS PERCENT AUTO 46.6 % (42.2-75.2); PLATELET COUNT,PLT 84 10^3/uL (150-450); RED BLOOD CELL COUNT 3.01 10^6/uL (4.2-5.4); WHITE BLOOD CELL COUNT,WBC 4.1 10^3/uL (5.0-10.0)
[2024-06-15 22:33] LABS: INR 1.5 (0.9-1.2); PROTHROMBIN TIME 15.6 SEC (9.0-12.0); PTT,PARTIAL THROMBOPLSTIN TIME 37.4 SEC (22.0-34.0)
[2024-06-15] MEDS: Sodium Chloride 0.9% 10 ML Syringe FLUSH PRN (22:34)
[2024-06-15] MEDS: Lactated Ringers 1,000 ML IV ONE (22:34)
[2024-06-15 22:35] LABS: ALANINE AMINOTRANSFERASE,ALT 45 U/L (14-59); ALBUMIN 2.3 g/dL (3.4-5.0); ALKALINE PHOSPHATASE 226 U/L (46-116); ANION GAP 11.4 mEq/L (7-13); ASPARTATE AMNIOTRANSFERASE,AST 121 U/L (15-37); BILIRUBIN TOTAL 2.4 mg/dL (0.2-1.0); BLOOD UREA NITROGEN,BUN 6 mg/dL (7-18); BUN/CREATININE RATIO 8.2 (No establ ref range); CALCIUM 7.8 mg/dL (8.5-10.1); CARBON DIOXIDE,CO2 25 mmol/L (21-32); CHLORIDE,CL 108 mmol/L (98-107); CREATININE 0.73 mg/dL (0.55-1.02); EST CRCL DRUG DOSING (CG) 99.55 mL/min; ETHANOL BLOOD MEDICAL 88 mg/dL (0); GLUCOSE RANDOM 89 mg/dL (70-99); MAGNESIUM 1.2 mg/dL (1.8-2.4); POTASSIUM,K 3.4 mmol/L (3.5-5.1); PROTEIN TOTAL,TP 7.5 g/dL (6.4-8.2); SODIUM,NA 141 mmol/L (136-145)
[2024-06-15 22:38] LABS: A/G RATIO 0.44; ESTIMATED GFR 112 mL/min (>=60)
[2024-06-15 22:46] LABS: HCG QUALITATIVE,SERUM NEGATIVE (NEGATIVE)
[2024-06-15] MEDS: Potassium Chloride 10 MEQ Tab.ER PO ONE (23:11)
[2024-06-15] MEDS: Magnesium Sulfate/Water 2 GM in Premix Bag 1 BAG IV ONE (23:12)
[2024-06-15] MEDS: Ondansetron 4 MG/2 ML SDV IVPUSH ONE (23:16)
[2024-06-16 01:09] LABS: APPEARANCE,URINE CLEAR (CLEAR); BILIRUBIN,URINE NEGATIVE (NEGATIVE); COLOR,URINE YELLOW (YELLOW); GLUCOSE,URINE NEGATIVE (NEGATIVE); KETONES,URINE NEGATIVE (NEGATIVE); LEUKOCYTE ESTERASE,URINE NEGATIVE (NEGATIVE); NITRITE,URINE NEGATIVE (NEGATIVE); OCCULT BLOOD,URINE MODERATE (NEGATIVE); PH,URINE 7.5 (5.0-9.0); PROTEIN,URINE NEGATIVE (NEGATIVE)
[2024-06-16 01:17] LABS: AMPHETAMINES,URINE NEGATIVE (NEGATIVE); BARBITURATES,URINE POSITIVE (NEGATIVE); BENZODIAZEPINE,URINE NEGATIVE (NEGATIVE); MDMA (ECSTASY), URINE NEGATIVE (NEGATIVE); METHADONE,URINE NEGATIVE (NEGATIVE); METHAMPHETAMINES,URINE NEGATIVE (NEGATIVE); OPIATES,URINE NEGATIVE (NEGATIVE); OXYCODONE,URINE NEGATIVE (NEGATIVE); PHENCYCLIDINE,URINE NEGATIVE (NEGATIVE); TCA,URINE NEGATIVE (NEGATIVE)
[2024-06-16 01:24] LABS: BACTERIA,URINE MODERATE /HPF (0-FEW/HPF); EPITHELIAL CELLS,URINE FEW /HPF (NOT SEEN)
[2024-06-16] MEDS: Prochlorperazine 5 MG Tab PO ONE (02:42)
[2024-06-16] MEDS: Take Home: Ondansetron 4 MG Tab.DIS, 5 Tab Pack PO ONE (04:51)
[2024-06-16 05:24] VITALS: BP 133/73; PULSE 66
== END 2024-06-16 05:12 | disposition home or self-care (01) ==
LOC: DL.ED 21:43
DX: K64.8 Other hemorrhoids (principal); D50.0 Iron deficiency anemia secondary to blood loss (chronic); K64.4 Residual hemorrhoidal skin tags; K60.2 Anal fissure, unspecified; E83.42 Hypomagnesemia; E87.6 Hypokalemia; K70.31 Alcoholic cirrhosis of liver with ascites; F10.120 Alcohol abuse with intoxication, uncomplicated; I10 Essential (primary) hypertension; E66.9 Obesity, unspecified; K21.9 Gastro-esophageal reflux disease without esophagitis; Z79.899 Other long term (current) drug therapy; Z88.1 Allergy status to other antibiotic agents; Z88.5 Allergy status to narcotic agent; Z91.048 Other nonmedicinal substance allergy status; Z68.41 Body mass index [BMI] 40.0-44.9, adult
CPT/HCPCS: 36415; 80053; 80305; 80307; 81001; 82272; 83735; 84703; 85018; 85025; 85610; 85730; 86850; 86900; 86901; 96361; 96365; 96366; 96375; 99284; 99285; A9270; J2405; J3475; J7120; Q0162; Q0164; J3490

== ENCOUNTER 2024-06-22 17:47 | Emergency (ER) | payer BC ==
[2024-06-22 18:13] VITALS: BP 141/94; PULSE 108
[2024-06-22] MEDS ORDERED: Sodium Chloride 0.9% 10 ML Syringe FLUSH PRN (18:20)
[2024-06-22 18:28] LABS: BASOPHILS PERCENT AUTO 0.7 % (0.0-1.0); EOSINOPHILS PERCENT AUTO 4.2 % (1.0-3.0); HEMATOCRIT 27.2 % (37.0-47.0); HEMOGLOBIN 8.6 g/dL (12.0-16.0); LYMPHOCYTES PERCENT AUTO 51.6 % (20.5-50.1); MEAN CORPUSCULAR HEMOGLOBIN 25.6 pg (27.0-34.0); MEAN CORPUSCULAR HGB CONC 31.6 g/dL (33.0-35.0); MONOCYTES PERCENT AUTO 9.6 % (2-8); NEUTROPHILS PERCENT AUTO 33.9 % (42.2-75.2); PLATELET COUNT,PLT 111 10^3/uL (150-450); RED BLOOD CELL COUNT 3.36 10^6/uL (4.2-5.4); WHITE BLOOD CELL COUNT,WBC 7.1 10^3/uL (5.0-10.0)
[2024-06-22 18:38] LABS: INR 1.7 (0.9-1.2); PROTHROMBIN TIME 17.3 SEC (9.0-12.0); PTT,PARTIAL THROMBOPLSTIN TIME 39.9 SEC (22.0-34.0)
[2024-06-22 18:39] LABS: ALANINE AMINOTRANSFERASE,ALT 61 U/L (14-59); ALBUMIN 2.3 g/dL (3.4-5.0); ALKALINE PHOSPHATASE 340 U/L (46-116); ANION GAP 10.4 mEq/L (7-13); ASPARTATE AMNIOTRANSFERASE,AST 233 U/L (15-37); BLOOD UREA NITROGEN,BUN 3 mg/dL (7-18); BUN/CREATININE RATIO 3.8 (No establ ref range); CALCIUM 7.7 mg/dL (8.5-10.1); CARBON DIOXIDE,CO2 27 mmol/L (21-32); CHLORIDE,CL 105 mmol/L (98-107); CREATININE 0.78 mg/dL (0.55-1.02); EST CRCL DRUG DOSING (CG) 93.17 mL/min; GLUCOSE RANDOM 101 mg/dL (70-99); MAGNESIUM 1.6 mg/dL (1.8-2.4); POTASSIUM,K 3.4 mmol/L (3.5-5.1); PROTEIN TOTAL,TP 8.2 g/dL (6.4-8.2); SODIUM,NA 139 mmol/L (136-145)
[2024-06-22 18:44] LABS: A/G RATIO 0.39; ESTIMATED GFR 103 mL/min (>=60)
[2024-06-22 18:45] LABS: ETHANOL BLOOD MEDICAL 430 mg/dL (0)
[2024-06-22 18:50] LABS: APPEARANCE,URINE CLEAR (CLEAR); BILIRUBIN,URINE NEGATIVE (NEGATIVE); COLOR,URINE YELLOW (YELLOW); GLUCOSE,URINE NEGATIVE (NEGATIVE); KETONES,URINE NEGATIVE (NEGATIVE); LEUKOCYTE ESTERASE,URINE NEGATIVE (NEGATIVE); NITRITE,URINE NEGATIVE (NEGATIVE); OCCULT BLOOD,URINE TRACE-INTACT (NEGATIVE); PH,URINE 6.5 (5.0-9.0); PROTEIN,URINE NEGATIVE (NEGATIVE)
[2024-06-22 18:55] LABS: HCG QUALITATIVE,SERUM NEGATIVE (NEGATIVE)
[2024-06-22 18:55] LABS: AMPHETAMINES,URINE NEGATIVE (NEGATIVE); BARBITURATES,URINE NEGATIVE (NEGATIVE); BENZODIAZEPINE,URINE NEGATIVE (NEGATIVE); MDMA (ECSTASY), URINE NEGATIVE (NEGATIVE); METHADONE,URINE NEGATIVE (NEGATIVE); METHAMPHETAMINES,URINE NEGATIVE (NEGATIVE); OPIATES,URINE NEGATIVE (NEGATIVE); OXYCODONE,URINE NEGATIVE (NEGATIVE); PHENCYCLIDINE,URINE NEGATIVE (NEGATIVE); TCA,URINE NEGATIVE (NEGATIVE)
[2024-06-22 19:07] LABS: BACTERIA,URINE FEW /HPF (0-FEW/HPF); EPITHELIAL CELLS,URINE FEW /HPF (NOT SEEN); WBC,URINE 0-5 /HPF (0-5/HPF)
[2024-06-22] MEDS: Potassium Chloride 10 MEQ Tab.ER PO ONE (19:29)
[2024-06-22] MEDS: Lactated Ringers 1,000 ML IV ONE (19:29)
[2024-06-22] MEDS: Ondansetron 4 MG/2 ML SDV IVPUSH ONE (20:04)
[2024-06-22] MEDS: Ibuprofen 400 MG Tab PO ONE (20:09)
== END 2024-06-22 20:22 | disposition left against medical advice (07) ==
LOC: DL.ED 17:47
DX: K70.31 Alcoholic cirrhosis of liver with ascites (principal); F10.120 Alcohol abuse with intoxication, uncomplicated; E83.42 Hypomagnesemia; E87.6 Hypokalemia; K76.6 Portal hypertension; S82.842A Displaced bimalleolar fracture of left lower leg, initial encounter for closed fracture; Y90.9 Presence of alcohol in blood, level not specified; X58.XXXA Exposure to other specified factors, initial encounter; Z88.5 Allergy status to narcotic agent; Z88.1 Allergy status to other antibiotic agents; Z91.048 Other nonmedicinal substance allergy status; Z79.899 Other long term (current) drug therapy; I10 Essential (primary) hypertension
CPT/HCPCS: 36415; 80053; 80305-QW; 80307; 81001; 82140; 83735; 84703; 85025; 85610; 85730; 93005; 93010; 96374; 99285; 99285-25; A9270-GY; J2405; J7120

== ENCOUNTER 2024-06-26 12:48 | Emergency (ER) | payer BC ==
[2024-06-26 12:12] VITALS: PULSE 82
[2024-06-26] MEDS: Sodium Chloride 0.9% 10 ML Syringe FLUSH PRN (12:28)
[2024-06-26] MEDS: Sodium Chloride 0.9% 1,000 ML IV ONE ×3 (12:28→13:57)
[2024-06-26 12:35] LABS: BASOPHILS PERCENT AUTO 0.5 % (0.0-1.0); EOSINOPHILS PERCENT AUTO 1.3 % (1.0-3.0); HEMATOCRIT 28.4 % (37.0-47.0); HEMOGLOBIN 8.8 g/dL (12.0-16.0); LYMPHOCYTES PERCENT AUTO 33.3 % (20.5-50.1); MEAN CORPUSCULAR HEMOGLOBIN 24.9 pg (27.0-34.0); MEAN CORPUSCULAR VOLUME 80.2 fL (80-100); NEUTROPHILS PERCENT AUTO 57.9 % (42.2-75.2); PLATELET COUNT,PLT 89 10^3/uL (150-450); RED BLOOD CELL COUNT 3.54 10^6/uL (4.2-5.4); WHITE BLOOD CELL COUNT,WBC 6.1 10^3/uL (5.0-10.0)
[2024-06-26 12:51] LABS: PTT,PARTIAL THROMBOPLSTIN TIME 38.3 SEC (22.0-34.0)
[2024-06-26 12:55] LABS: LACTIC ACID 3.5 mmol/L (0.4-2.0)
[2024-06-26 12:59] LABS: ALBUMIN 2.1 g/dL (3.4-5.0); ANION GAP 12.9 mEq/L (7-13); BILIRUBIN TOTAL 5.4 mg/dL (0.2-1.0); CALCIUM 7.7 mg/dL (8.5-10.1); CREATININE 1.19 mg/dL (0.55-1.02); EST CRCL DRUG DOSING (CG) 61.07 mL/min; MAGNESIUM 1.3 mg/dL (1.8-2.4); POTASSIUM,K 3.9 mmol/L (3.5-5.1)
[2024-06-26 13:00] LABS: A/G RATIO 0.36
[2024-06-26 13:11] LABS: INR 2.1 (0.9-1.2); PROTHROMBIN TIME 20.7 SEC (9.0-12.0)
[2024-06-26] MEDS: Magnesium Sulfate/Water 2 GM in Premix Bag 1 BAG IV ONE ×2 (13:33→13:49)
[2024-06-26 13:54] VITALS: BP 102/89
[2024-06-26] MEDS: Magnesium Sulfate/Water 0 ML ONE (14:28)
[2024-06-26] MEDS: Sodium Chloride 0.9% 500 ML IV ONE (14:37)
[2024-06-29 14:42] LABS: HAV AB IGM Negative (Negative); HBC IGM Negative (Negative); HEP B SURG AG Negative (Negative); HEP C AB BY CIA Negative (Negative); HEP C AB BY CIA INDEX 0.21 IV
== END 2024-06-26 18:28 ==
LOC: DL.ED 12:48
DX: K70.30 Alcoholic cirrhosis of liver without ascites (principal); K64.4 Residual hemorrhoidal skin tags; K92.2 Gastrointestinal hemorrhage, unspecified; I95.9 Hypotension, unspecified; R78.89 Finding of other specified substances, not normally found in blood; R74.01 Elevation of levels of liver transaminase levels; R79.1 Abnormal coagulation profile; E87.20 Acidosis, unspecified; D64.9 Anemia, unspecified; I10 Essential (primary) hypertension; E66.9 Obesity, unspecified; Z88.1 Allergy status to other antibiotic agents; Z88.8 Allergy status to other drugs, medicaments and biological substances; Z79.899 Other long term (current) drug therapy; Z68.41 Body mass index [BMI] 40.0-44.9, adult
CPT/HCPCS: 36415; 80053; 80074; 80307; 82272; 83605; 83690; 83735; 84484; 85025; 85610; 85730; 93005; 93010; 96365; 96366; 99285; 99285-25; J3475; J3490; J7030

== ENCOUNTER 2024-07-18 20:06 | Emergency (ER) | payer BC ==
[2024-07-18 20:17] VITALS: BP 111/80; PULSE 104
[2024-07-18 20:44] LABS: BASOPHILS PERCENT AUTO 0.7 % (0.0-1.0); EOSINOPHILS PERCENT AUTO 0.9 % (1.0-3.0); HEMATOCRIT 28.5 % (37.0-47.0); HEMOGLOBIN 9.1 g/dL (12.0-16.0); LYMPHOCYTES PERCENT AUTO 38.1 % (20.5-50.1); MEAN CORPUSCULAR HEMOGLOBIN 26.7 pg (27.0-34.0); MEAN CORPUSCULAR HGB CONC 31.9 g/dL (33.0-35.0); MEAN CORPUSCULAR VOLUME 83.6 fL (80-100); MONOCYTES PERCENT AUTO 5.7 % (2-8); NEUTROPHILS PERCENT AUTO 54.6 % (42.2-75.2); PLATELET COUNT,PLT 139 10^3/uL (150-450); RED BLOOD CELL COUNT 3.41 10^6/uL (4.2-5.4); WHITE BLOOD CELL COUNT,WBC 6.9 10^3/uL (5.0-10.0)
[2024-07-18 21:03] LABS: PROTHROMBIN TIME 19.8 SEC (9.0-12.0); PTT,PARTIAL THROMBOPLSTIN TIME 49.5 SEC (22.0-34.0)
[2024-07-18 21:16] LABS: ALANINE AMINOTRANSFERASE,ALT 56 U/L (14-59); ALKALINE PHOSPHATASE 204 U/L (46-116); ANION GAP 14.7 mEq/L (7-13); ASPARTATE AMNIOTRANSFERASE,AST 192 U/L (15-37); BLOOD UREA NITROGEN,BUN 4 mg/dL (7-18); BUN/CREATININE RATIO 4.7 (No establ ref range); CALCIUM 8.2 mg/dL (8.5-10.1); CARBON DIOXIDE,CO2 25 mmol/L (21-32); CHLORIDE,CL 108 mmol/L (98-107); CREATININE 0.85 mg/dL (0.55-1.02); GLUCOSE RANDOM 199 mg/dL (70-99); LIPASE 221 U/L (16-77); MAGNESIUM 1.5 mg/dL (1.8-2.4); POTASSIUM,K 3.7 mmol/L (3.5-5.1); PROTEIN TOTAL,TP 8.2 g/dL (6.4-8.2); SODIUM,NA 144 mmol/L (136-145)
[2024-07-18 21:17] LABS: A/G RATIO 0.58; ESTIMATED GFR 93 mL/min (>=60)
[2024-07-18 21:18] LABS: ETHANOL BLOOD MEDICAL 318 mg/dL (0); LACTIC ACID 3.5 mmol/L (0.4-2.0)
[2024-07-18] MEDS: Magnesium Sulfate/Water Premix 2 GM in Premix Bag 1 BAG IV ONE (21:43)
[2024-07-18] MEDS: Sodium Chloride 0.9% 1,000 ML IV ONE (21:43)
[2024-07-18] MEDS: Ketorolac 30 MG/ML SDV IVPUSH ONE (22:12)
[2024-07-18] MEDS: Sodium Chloride 0.9% 10 ML Syringe FLUSH PRN (22:43)
== END 2024-07-18 23:01 | disposition home or self-care (01) ==
LOC: DL.ED 20:06
DX: E87.20 Acidosis, unspecified (principal); E83.42 Hypomagnesemia; K70.31 Alcoholic cirrhosis of liver with ascites; F10.120 Alcohol abuse with intoxication, uncomplicated; K21.9 Gastro-esophageal reflux disease without esophagitis; I10 Essential (primary) hypertension; E66.9 Obesity, unspecified; Z79.899 Other long term (current) drug therapy; Z88.1 Allergy status to other antibiotic agents; Z88.8 Allergy status to other drugs, medicaments and biological substances; Z91.048 Other nonmedicinal substance allergy status
CPT/HCPCS: 36415; 71045; 80053; 80307; 81025; 83605; 83690; 83735; 84145; 84484; 85025; 85610; 85730; 86140; 87804; 93005; 93010; 96365; 96375; 99284; 99285-25; J1885; J3475; J3490; J7030; U0002

== ENCOUNTER 2024-07-20 12:08 | Emergency (ER) | payer BC ==
[2024-07-20 14:18] VITALS: BP 110/60; PULSE 69
[2024-07-20 14:47] LABS: BASOPHILS PERCENT AUTO 0.8 % (0.0-1.0); EOSINOPHILS PERCENT AUTO 0.4 % (1.0-3.0); HEMATOCRIT 29.2 % (37.0-47.0); HEMOGLOBIN 9.3 g/dL (12.0-16.0); LYMPHOCYTES PERCENT AUTO 29.7 % (20.5-50.1); MEAN CORPUSCULAR HEMOGLOBIN 26.9 pg (27.0-34.0); MEAN CORPUSCULAR HGB CONC 31.8 g/dL (33.0-35.0); MEAN CORPUSCULAR VOLUME 84.4 fL (80-100); MONOCYTES PERCENT AUTO 5.5 % (2-8); NEUTROPHILS PERCENT AUTO 63.6 % (42.2-75.2); PLATELET COUNT,PLT 101 10^3/uL (150-450); RED BLOOD CELL COUNT 3.46 10^6/uL (4.2-5.4); WHITE BLOOD CELL COUNT,WBC 4.9 10^3/uL (5.0-10.0)
[2024-07-20 14:58] LABS: APPEARANCE,URINE CLEAR (CLEAR); BILIRUBIN,URINE NEGATIVE (NEGATIVE); COLOR,URINE YELLOW (YELLOW); GLUCOSE,URINE NEGATIVE (NEGATIVE); KETONES,URINE NEGATIVE (NEGATIVE); LEUKOCYTE ESTERASE,URINE NEGATIVE (NEGATIVE); NITRITE,URINE NEGATIVE (NEGATIVE); OCCULT BLOOD,URINE MODERATE (NEGATIVE); PH,URINE 8.5 (5.0-9.0); PROTEIN,URINE NEGATIVE (NEGATIVE); UROBILINOGEN,URINE 0.2 mg/dL (0.2-1.0)
[2024-07-20 15:03] LABS: A/G RATIO 0.57; ANION GAP 14.5 mEq/L (7-13); BILIRUBIN TOTAL 6.5 mg/dL (0.2-1.0); BUN/CREATININE RATIO 6.8 (No establ ref range); CREATININE 0.73 mg/dL (0.55-1.02); EST CRCL DRUG DOSING (CG) 99.55 mL/min; MAGNESIUM 1.6 mg/dL (1.8-2.4); POTASSIUM,K 4.5 mmol/L (3.5-5.1); PROTEIN TOTAL,TP 8.3 g/dL (6.4-8.2)
[2024-07-20 15:29] LABS: C-REACTIVE PROTEIN 1.27 ng/dL (<=0.50)
[2024-07-20 15:30] LABS: EPITHELIAL CELLS,URINE FEW /HPF (NOT SEEN)
[2024-07-20 15:31] LABS: BACTERIA,URINE RARE /HPF (0-FEW/HPF); WBC,URINE 0-5 /HPF (0-5/HPF)
[2024-07-20] MEDS: Ondansetron 4 MG Tab.DIS PO ONE (15:39)
[2024-07-20] MEDS: Sodium Chloride 0.9% 10 ML Syringe FLUSH PRN (15:50)
[2024-07-20] MEDS: Magnesium Sulfate/Water Premix 2 GM in Premix Bag 1 BAG IV ONE (15:53)
[2024-07-20] MEDS ORDERED: Lidocaine 1% 5 ML VIAL INJECT ONE (15:58)
[2024-07-20 16:13] LABS: INR 1.9 (0.9-1.2); PROTHROMBIN TIME 18.9 SEC (9.0-12.0); PTT,PARTIAL THROMBOPLSTIN TIME 45.6 SEC (22.0-34.0)
[2024-07-20 16:33] LABS: LACTIC ACID 2.5 mmol/L (0.4-2.0)
[2024-07-20] MEDS: Iopamidol 612 MG/ML 100 ML Bottle IVPUSH ONE (16:43)
[2024-07-20] MEDS: Take Home: Cephalexin 500 MG Cap, 6 Cap Pack PO ONE (18:49)
[2024-07-20] MEDS: Take Home: hydrOXYzine HCl 25 MG Tab, 4 Tab Pack PO ONE (18:49)
== END 2024-07-20 19:04 | disposition home or self-care (01) ==
LOC: DL.ED 12:08
DX: K64.4 Residual hemorrhoidal skin tags (principal); K64.9 Unspecified hemorrhoids; E80.6 Other disorders of bilirubin metabolism; E83.42 Hypomagnesemia; I10 Essential (primary) hypertension; K21.9 Gastro-esophageal reflux disease without esophagitis; E66.9 Obesity, unspecified; Z68.41 Body mass index [BMI] 40.0-44.9, adult; Z79.899 Other long term (current) drug therapy; Z88.5 Allergy status to narcotic agent; Z88.1 Allergy status to other antibiotic agents; Z91.048 Other nonmedicinal substance allergy status
CPT/HCPCS: 36415; 74177; 80053; 80307; 81001; 82140; 83605; 83690; 83735; 85025; 85610; 85730; 86140; 96374; 99284; A9270; J3475; Q9967; J3490

== ENCOUNTER 2024-08-31 13:59 | Emergency (ER) | payer BC ==
[2024-08-31] MEDS ORDERED: Iopamidol 612 MG/ML 100 ML Bottle IVPUSH ONE (14:38)
[2024-08-31 14:56] LABS: BASOPHILS PERCENT AUTO 0.6 % (0.0-1.0); EOSINOPHILS PERCENT AUTO 1.3 % (1.0-3.0); HEMATOCRIT 25.6 % (37.0-47.0); HEMOGLOBIN 8.1 g/dL (12.0-16.0); LYMPHOCYTES PERCENT AUTO 47.8 % (20.5-50.1); MEAN CORPUSCULAR HEMOGLOBIN 28.2 pg (27.0-34.0); MEAN CORPUSCULAR HGB CONC 31.6 g/dL (33.0-35.0); MEAN CORPUSCULAR VOLUME 89.2 fL (80-100); MONOCYTES PERCENT AUTO 5.8 % (2-8); NEUTROPHILS PERCENT AUTO 44.5 % (42.2-75.2); PLATELET COUNT,PLT 41 10^3/uL (150-450); RED BLOOD CELL COUNT 2.87 10^6/uL (4.2-5.4); WHITE BLOOD CELL COUNT,WBC 4.7 10^3/uL (5.0-10.0)
[2024-08-31 15:03] LABS: APPEARANCE,URINE CLEAR (CLEAR); BILIRUBIN,URINE NEGATIVE (NEGATIVE); COLOR,URINE YELLOW (YELLOW); GLUCOSE,URINE NEGATIVE (NEGATIVE); KETONES,URINE NEGATIVE (NEGATIVE); LEUKOCYTE ESTERASE,URINE NEGATIVE (NEGATIVE); NITRITE,URINE NEGATIVE (NEGATIVE); OCCULT BLOOD,URINE SMALL (NEGATIVE); PROTEIN,URINE NEGATIVE (NEGATIVE); UROBILINOGEN,URINE 0.2 mg/dL (0.2-1.0)
[2024-08-31 15:07] LABS: AMPHETAMINES,URINE NEGATIVE (NEGATIVE); BARBITURATES,URINE NEGATIVE (NEGATIVE); BENZODIAZEPINE,URINE NEGATIVE (NEGATIVE); MDMA (ECSTASY), URINE NEGATIVE (NEGATIVE); METHADONE,URINE NEGATIVE (NEGATIVE); METHAMPHETAMINES,URINE NEGATIVE (NEGATIVE); OPIATES,URINE NEGATIVE (NEGATIVE); OXYCODONE,URINE NEGATIVE (NEGATIVE); PHENCYCLIDINE,URINE NEGATIVE (NEGATIVE); TCA,URINE NEGATIVE (NEGATIVE)
[2024-08-31 15:10] LABS: PROTHROMBIN TIME 20.1 SEC (9.0-12.0)
[2024-08-31 15:11] LABS: EPITHELIAL CELLS,URINE OCCASIONAL /HPF (NOT SEEN); WBC,URINE NOT SEEN /HPF (0-5/HPF)
[2024-08-31 15:12] LABS: BACTERIA,URINE OCCASIONAL /HPF (0-FEW/HPF); MUCUS,URINE FEW /LPF (NOT SEEN)
[2024-08-31 15:15] LABS: ALBUMIN 1.9 g/dL (3.4-5.0); ANION GAP 11.8 mEq/L (7-13); BILIRUBIN TOTAL 5.1 mg/dL (0.2-1.0); BUN/CREATININE RATIO 4.5 (No establ ref range); CALCIUM 7.8 mg/dL (8.5-10.1); CREATININE 0.88 mg/dL (0.55-1.02); EST CRCL DRUG DOSING (CG) 82.59 mL/min; MAGNESIUM 1.4 mg/dL (1.8-2.4); POTASSIUM,K 2.8 mmol/L (3.5-5.1); PROTEIN TOTAL,TP 7.6 g/dL (6.4-8.2)
[2024-08-31 15:16] LABS: A/G RATIO 0.33
[2024-08-31] MEDS ORDERED: Potassium Chloride 20 MEQ in Premix Bag 1 BAG IV ONE (15:23)
[2024-08-31] MEDS ORDERED: Magnesium Sulfate/Water Premix 2 GM in Premix Bag 1 BAG IV ONE (15:24)
[2024-08-31] MEDS: Potassium Chloride 10 MEQ in Premix Bag 1 BAG IV ONE (15:54)
[2024-08-31] MEDS: Metoprolol Tartrate 50 MG Tab PO ONE (15:56)
[2024-08-31] MEDS: atorvaSTATin 20 MG Tab PO ONE (15:58)
[2024-08-31] MEDS: Potassium Chloride 10 MEQ Tab.ER PO ONE (15:58)
[2024-08-31] MEDS: Aspirin 81 MG Tab.Chew PO ONE (16:00)
[2024-08-31 16:02] VITALS: BP 124/71; PULSE 88
[2024-08-31] MEDS: Thiamine 200 MG in Sodium Chloride 0.9% 100 ML IV ONE (16:03)
== END 2024-08-31 17:50 ==
LOC: DL.ED 13:59
DX: I21.4 Non-ST elevation (NSTEMI) myocardial infarction (principal); J06.9 Acute upper respiratory infection, unspecified; B96.89 Other specified bacterial agents as the cause of diseases classified elsewhere; K70.30 Alcoholic cirrhosis of liver without ascites; F10.120 Alcohol abuse with intoxication, uncomplicated; E83.42 Hypomagnesemia; E87.6 Hypokalemia; D64.9 Anemia, unspecified; D61.818 Other pancytopenia; M25.572 Pain in left ankle and joints of left foot; G89.29 Other chronic pain; Y90.8 Blood alcohol level of 240 mg/100 ml or more; I10 Essential (primary) hypertension; K21.9 Gastro-esophageal reflux disease without esophagitis; E66.9 Obesity, unspecified; Z88.1 Allergy status to other antibiotic agents; Z88.5 Allergy status to narcotic agent; Z91.048 Other nonmedicinal substance allergy status; Z79.2 Long term (current) use of antibiotics; Z79.899 Other long term (current) drug therapy; Z68.41 Body mass index [BMI] 40.0-44.9, adult
CPT/HCPCS: 36415; 73610; 74177; 80053; 80305; 80307; 81001; 81025; 83690; 83735; 84484; 85025; 85610; 87081; 87428; 87430; 93005; 93010; 96365; 96368; 99285; A9270; J3411; J3475; J3480; J3490

== ENCOUNTER 2024-09-16 16:20 | Emergency (ER) | payer BC ==
[2024-09-16 16:45] VITALS: BP 115/52; PULSE 110
== END 2024-09-16 16:59 | disposition left against medical advice (07) ==
LOC: DL.ED 16:20
DX: K70.31 Alcoholic cirrhosis of liver with ascites (principal); F10.10 Alcohol abuse, uncomplicated; D64.9 Anemia, unspecified; I10 Essential (primary) hypertension; K21.9 Gastro-esophageal reflux disease without esophagitis; E66.9 Obesity, unspecified; Z86.16 Personal history of COVID-19; Z88.1 Allergy status to other antibiotic agents; Z88.5 Allergy status to narcotic agent; Z91.048 Other nonmedicinal substance allergy status; Z79.899 Other long term (current) drug therapy; Z68.42 Body mass index [BMI] 45.0-49.9, adult
CPT/HCPCS: 99283

== ENCOUNTER 2024-10-01 23:23 | Emergency (ER) | payer BC ==
[2024-10-02 00:53] LABS: BASOPHILS PERCENT AUTO 0.2 % (0.0-1.0); EOSINOPHILS PERCENT AUTO 0.2 % (1.0-3.0); HEMATOCRIT 31.1 % (37.0-47.0); HEMOGLOBIN 9.6 g/dL (12.0-16.0); LYMPHOCYTES PERCENT AUTO 6.4 % (20.5-50.1); MEAN CORPUSCULAR HEMOGLOBIN 28.6 pg (27.0-34.0); MEAN CORPUSCULAR HGB CONC 30.9 g/dL (33.0-35.0); MEAN CORPUSCULAR VOLUME 92.6 fL (80-100); NEUTROPHILS PERCENT AUTO 88.2 % (42.2-75.2); PLATELET COUNT,PLT 79 10^3/uL (150-450); RED BLOOD CELL COUNT 3.36 10^6/uL (4.2-5.4); WHITE BLOOD CELL COUNT,WBC 12.9 10^3/uL (5.0-10.0)
[2024-10-02 01:16] LABS: ALANINE AMINOTRANSFERASE,ALT 42 U/L (14-59); ALBUMIN 2.1 g/dL (3.4-5.0); ALKALINE PHOSPHATASE 207 U/L (46-116); ASPARTATE AMNIOTRANSFERASE,AST 71 U/L (15-37); BILIRUBIN TOTAL 17.4 mg/dL (0.2-1.0); BLOOD UREA NITROGEN,BUN 15 mg/dL (7-18); CALCIUM 8.1 mg/dL (8.5-10.1); CARBON DIOXIDE,CO2 29 mmol/L (21-32); CHLORIDE,CL 101 mmol/L (98-107); CREATININE 1.07 mg/dL (0.55-1.02); EST CRCL DRUG DOSING (CG) 67.92 mL/min; GLUCOSE RANDOM 109 mg/dL (70-99); LIPASE 29 U/L (16-77); MAGNESIUM 1.7 mg/dL (1.8-2.4); PROTEIN TOTAL,TP 5.8 g/dL (6.4-8.2); SODIUM,NA 137 mmol/L (136-145)
[2024-10-02 01:21] LABS: A/G RATIO 0.57; ESTIMATED GFR 71 mL/min (>=60); ETHANOL BLOOD MEDICAL < 3 mg/dL (0)
[2024-10-02] MEDS: Iopamidol 612 MG/ML 100 ML Bottle IVPUSH ONE (02:08)
[2024-10-02 02:15] LABS: INR 2.7 (0.9-1.2)
[2024-10-02 02:18] LABS: PROTHROMBIN TIME 26.6 SEC (9.0-12.0)
[2024-10-02 02:24] LABS: APPEARANCE,URINE TURBID (CLEAR); BILIRUBIN,URINE LARGE (NEGATIVE); COLOR,URINE DARK YELLOW (YELLOW); GLUCOSE,URINE 100 (NEGATIVE); KETONES,URINE 15 (NEGATIVE); LEUKOCYTE ESTERASE,URINE LARGE (NEGATIVE); NITRITE,URINE NEGATIVE (NEGATIVE); OCCULT BLOOD,URINE TRACE-INTACT (NEGATIVE); PROTEIN,URINE 30 (NEGATIVE)
[2024-10-02 02:28] LABS: AMPHETAMINES,URINE NEGATIVE (NEGATIVE); BARBITURATES,URINE NEGATIVE (NEGATIVE); BENZODIAZEPINE,URINE POSITIVE (NEGATIVE); MDMA (ECSTASY), URINE NEGATIVE (NEGATIVE); METHADONE,URINE NEGATIVE (NEGATIVE); METHAMPHETAMINES,URINE NEGATIVE (NEGATIVE); OPIATES,URINE NEGATIVE (NEGATIVE); OXYCODONE,URINE POSITIVE (NEGATIVE); PHENCYCLIDINE,URINE NEGATIVE (NEGATIVE); TCA,URINE NEGATIVE (NEGATIVE)
[2024-10-02 02:42] LABS: BACTERIA,URINE MANY /HPF (0-FEW/HPF); EPITHELIAL CELLS,URINE MANY /HPF (NOT SEEN); MUCUS,URINE FEW /LPF (NOT SEEN)
[2024-10-02 02:43] LABS: HYALINE CASTS,URINE FEW; YEAST,URINE RARE /HPF (NOT SEEN)
[2024-10-02 02:44] LABS: FINE GRANULAR CASTS,URINE FEW /LPF (NOT SEEN)
[2024-10-02 02:45] LABS: WBC,URINE 30-40 /HPF (0-5/HPF)
[2024-10-02] MEDS: Magnesium Oxide 400 MG Tab PO SCH (02:52)
[2024-10-02] MEDS: cefTRIAXone 1 GM Vial IVPUSH ONE (04:35)
[2024-10-02] MEDS: Morphine 2 MG/ML SYRINGE IVPUSH ONE (04:38)
[2024-10-02] MEDS: Ondansetron 4 MG/2 ML SDV IVPUSH ONE (04:38)
[2024-10-02 06:56] VITALS: PULSE 73
[2024-10-02] MEDS: oxyCODONE 5 MG Tab PO ONE (07:30)
[2024-10-02 08:00] VITALS: BP 124/64
== END 2024-10-02 08:17 | disposition home or self-care (01) ==
LOC: DL.ED 23:23
DX: K80.20 Calculus of gallbladder without cholecystitis without obstruction (principal); K70.31 Alcoholic cirrhosis of liver with ascites; N39.0 Urinary tract infection, site not specified; D64.9 Anemia, unspecified; I10 Essential (primary) hypertension; K21.9 Gastro-esophageal reflux disease without esophagitis; E66.9 Obesity, unspecified; Z86.16 Personal history of COVID-19; Z79.899 Other long term (current) drug therapy; Z79.2 Long term (current) use of antibiotics; Z88.1 Allergy status to other antibiotic agents; Z88.5 Allergy status to narcotic agent; Z91.048 Other nonmedicinal substance allergy status; Z68.42 Body mass index [BMI] 45.0-49.9, adult
CPT/HCPCS: 36415; 74177; 76705; 80053; 80305-QW; 80307; 81001; 83690; 83735; 85025; 85610; 87086; 93005; 96374; 96375; 99284-25; A9270-GY; J0696; J2270; J2405; Q9967

== ENCOUNTER 2024-11-02 15:20 | Emergency (ER) | payer BC ==
[2024-11-02] MEDS ORDERED: Sodium Chloride 0.9% 10 ML Syringe FLUSH PRN (15:28)
[2024-11-02 15:40] LABS: BASOPHILS PERCENT AUTO 0.4 % (0.0-1.0); EOSINOPHILS PERCENT AUTO 0.4 % (1.0-3.0); HEMATOCRIT 29.9 % (37.0-47.0); HEMOGLOBIN 9.4 g/dL (12.0-16.0); LYMPHOCYTES PERCENT AUTO 17.8 % (20.5-50.1); MEAN CORPUSCULAR HEMOGLOBIN 30.1 pg (27.0-34.0); MEAN CORPUSCULAR HGB CONC 31.4 g/dL (33.0-35.0); MEAN CORPUSCULAR VOLUME 95.8 fL (80-100); MONOCYTES PERCENT AUTO 9.7 % (2-8); NEUTROPHILS PERCENT AUTO 71.7 % (42.2-75.2); PLATELET COUNT,PLT 106 10^3/uL (150-450); RED BLOOD CELL COUNT 3.12 10^6/uL (4.2-5.4); WHITE BLOOD CELL COUNT,WBC 7.4 10^3/uL (5.0-10.0)
[2024-11-02 16:06] LABS: ALANINE AMINOTRANSFERASE,ALT 70 U/L (14-59); ALBUMIN 2.6 g/dL (3.4-5.0); ALKALINE PHOSPHATASE 348 U/L (46-116); ANION GAP 13.8 mEq/L (7-13); ASPARTATE AMNIOTRANSFERASE,AST 119 U/L (15-37); BILIRUBIN TOTAL 12.8 mg/dL (0.2-1.0); BLOOD UREA NITROGEN,BUN 10 mg/dL (7-18); BUN/CREATININE RATIO 11.2 (No establ ref range); C-REACTIVE PROTEIN 1.15 ng/dL (<=0.50); CALCIUM 8.1 mg/dL (8.5-10.1); CARBON DIOXIDE,CO2 25 mmol/L (21-32); CHLORIDE,CL 101 mmol/L (98-107); CREATININE 0.89 mg/dL (0.55-1.02); ETHANOL BLOOD MEDICAL 259 mg/dL (0); GLUCOSE RANDOM 151 mg/dL (70-99); LIPASE 87 U/L (16-77); MAGNESIUM 2.2 mg/dL (1.8-2.4); POTASSIUM,K 3.8 mmol/L (3.5-5.1); PROTEIN TOTAL,TP 6.9 g/dL (6.4-8.2); SODIUM,NA 136 mmol/L (136-145)
[2024-11-02 16:12] VITALS: BP 123/96; PULSE 100
[2024-11-02 16:18] LABS: ESTIMATED GFR 88 mL/min (>=60)
[2024-11-02 16:19] LABS: LACTIC ACID 4.6 mmol/L (0.4-2.0)
[2024-11-02] MEDS ORDERED: Sodium Chloride 0.9% 1,000 ML IV ONE (16:21)
[2024-11-02 16:30] LABS: PROTHROMBIN TIME 20.1 SEC (9.0-12.0); PTT,PARTIAL THROMBOPLSTIN TIME 44.6 SEC (22.0-34.0)
== END 2024-11-02 16:29 | disposition left against medical advice (07) ==
LOC: DL.ED 15:20
DX: K70.30 Alcoholic cirrhosis of liver without ascites (principal); F10.10 Alcohol abuse, uncomplicated; D64.9 Anemia, unspecified; I10 Essential (primary) hypertension; K21.9 Gastro-esophageal reflux disease without esophagitis; E66.9 Obesity, unspecified; Z86.16 Personal history of COVID-19; Z79.899 Other long term (current) drug therapy; Z88.5 Allergy status to narcotic agent; Z88.1 Allergy status to other antibiotic agents; Z91.048 Other nonmedicinal substance allergy status; Z68.41 Body mass index [BMI] 40.0-44.9, adult
CPT/HCPCS: 36415; 71045; 80053; 80307; 83605; 83690; 83735; 85025; 85610; 85730; 86140; 99284